=== PATIENT | male | born 1935 | race Caucasian/White ===

== ENCOUNTER 2017-07-28 22:29 | Observation (INO) | payer MEDICARE ==
[2017-07-28 23:27] LABS: CKMB 0.7 ng/mL (0-6.6); Troponin I 0.012 ng/mL (< 0.028)
[2017-07-29] MEDS ORDERED: Ondansetron ODT 4 MG TAB SL PRN (02:13)
[2017-07-29] MEDS ORDERED: Ondansetron HCl/PF 4 MG/2 ML Vial IVP PRN (02:13)
[2017-07-29] MEDS ORDERED: Nitroglycerin 2% Ointment 1 INCH/1 GM Packet TOP PRN (02:13)
[2017-07-29] MEDS ORDERED: Acetaminophen 325 MG TAB PO PRN ×2 (02:13→07:02)
[2017-07-29 02:40] VITALS: BMI 40.9
[2017-07-29 02:54] LABS: Troponin I 0.013 ng/mL (< 0.028)
[2017-07-29 05:39] LABS: Troponin I 0.015 ng/mL (< 0.028)
[2017-07-29] MEDS ORDERED: Ondansetron ODT 4 MG TAB PO PRN (07:02)
[2017-07-29 07:21] LABS: #Eosinphils 0.3 thou/uL (0.0-0.7); #Lymphocytes 1.5 thou/uL (1.20-3.40); #Monocytes 0.5 thou/uL (0.11-0.59); #Neutrophils 2.6 thou/uL (1.40-6.50); %Basophils 0.9 % (0.0-1.0); %Eosinophils 6.3 % (0.0-10.0); %Lymphocytes 30.6 % (21.0-51.0); %Monocytes 10.2 % (0.0-10.0); %Neutrophils 52.1 % (42.0-75.0); Hemoglobin 12.6 g/dL (14.0-18.0); Mean Corpuscular Hemoglobin 28.3 pg (27.0-31.0); Mean Corpuscular Volume 88.5 fl (80.0-94.0); Mean Platelet Volume 6.8 fL (7.4-10.4); Platelet Count 204 thou/uL (130-400); RBC Distribution Width 13.1 % (11.5-14.5); Red Blood Cell (RBC) Count 4.44 mill/uL (4.70-6.10)
[2017-07-29 07:35] LABS: Anion Gap 16 mmol/L (10-20); BUN (Urea Nitrogen) 29 mg/dL (8.4-25.7); Calc. Creatinine Clearance 49 mL/min (70-130); Calcium 9.4 mg/dL (7.8-10.44); Carbon Dioxide 22 mmol/L (23-31); Chloride 107 mmol/L (98-107); Estimated GFR-MDRD 28; Glucose 89 mg/dL (83-110); Magnesium 2.2 mg/dL (1.6-2.6); Potassium 4.5 mmol/L (3.5-5.1); Sodium 140 mmol/L (136-145)
[2017-07-29] MEDS: Enoxaparin Sodium 30 MG/0.3 ML SYRINGE SC SCH (08:25)
--- NOTE | 2017-07-29 10:49 | HP ---
PRIMARY CARE PHYSICIAN: Dr. Ray Allen. CURING PRESS OPERATOR: Primary concrete pouring supervisor was Dr. Salvatore Suarez. On-call concrete pouring supervisor, Omid Dillard. TIME OF SERVICE: 614. The patient was seen in the emergency department on 07/28/2017. The decisio n to place in observation was made just after midnight on 07/29/2017. CHIEF COMPLAINT: Chest pain. HISTORY OF PRESENT ILLNESS: Mr. Mulligan is a very pleasant 82-year-old male with a history of hyperl ipidemia, hypertension, renal cell carcinoma, status post nephrectomy, BPH, cerebrovascular disease, asthma, stroke, chronic diastolic congestive heart failure, coronary artery disease, anxiety and depr ession, who presents to the emergency department initially in [place] for evaluation of chest pain. The patient states he was in normal state of health. He woke up early in the morning 07/28 with subst ernal chest pressure. Initially, it stayed there in the center of the chest, did not radiate anywher e else and then eventually resolved on its own. He denied any nausea, vomiting, diaphoresis during t hat time, but later in the afternoon around 4:00 p.m., the patient developed increased severe 8/10 galvin bsternal chest pressure that radiated up into the back of his neck. His initially wanted him to go to the Emergency Department, but he wanted to wait for it to ease up; however, it became 10/10 in severity and will radiate up into his jaw. The patient stated he was unable to eat because of the p ain and the cramping in his jaw and the muscle cramps in the side of his neck. Subsequently, he went to the outside Emergency Department for evaluation. There, he was worked up. Labs were apparently normal. Creatinine 2.41 just above his normal baselin e and negative initial set of biomarkers with a CK-MB of 0.8 and a troponin of 0.018. He was transfe rred to [place] to be admitted for further evaluation. On arrival here, he was tolerating a little bit of discomfort. He was given a medicine for musculosk eletal pain as well as nitroglycerin. No set of biomarkers were drawn with a CK-MB down to 0.7 and a troponin I down to 0.012. We were subsequently called for admission. The patient was placed in observation little after midnight, was watched him on the floor. Serial ca rdiac biomarkers were obtained that were unremarkable and patient was seen and examined around 06:15 and formally admitted and was placed in observation. He denies any other current complaints. PAST MEDICAL HISTORY: 1. Hyperlipidemia. 2. Hypertension. 3. Renal cell carcinoma. 4. BPH. 5. Cerebrovascular disease status post CVA in 2000. 6. Chronic diastolic congestive heart failure, last echo in 02/2016. 7. Coronary artery disease. He is followed by Dr. Salvatore Suarez. He underwent cardiac catheterizati on after an abnormal stress test in 02/2016 that showed minimal coronary disease. No interventions w ere made and recommended medical management. 8. Anxiety. 9. Depression. PAST SURGICAL HISTORY: Right nephrectomy in 2005 with appendectomy remotely. HOME MEDICATIONS: 1. Toprol-XL 25 mg p.o. q.a.m. 2. Zocor 40 mg p.o. at bedtime. 3. Lasix 20 mg p.o. q.a.m. 4. Nifedipine 60 mg p.o. q.a.m. 5. Hydralazine 25 mg p.o. t.i.d. 6. Isosorbide mononitrate 30 mg p.o. daily. 7. Ropinirole 0.5 mg p.o. q.p.m. ALLERGIES: LORATADINE causes throat swelling and difficulty breathing. FAMILY HISTORY: Negative for clotting or bleeding disorders. No immune dysfunction. No premature c oronary artery disease. SOCIAL HISTORY: Negative for habits x3. He is and monogamous. No recent travel. REVIEW OF SYSTEMS: A 10-point review of systems was performed, negative for all other systems except as stated as per HPI. PHYSICAL EXAMINATION: VITAL SIGNS: Temperature on arrival at the outside ER 97.6, pulse 82, blood pressure 150/75, respira tory rate 18, satting 91% on room air. On discharge from our emergency department and arrival to our floor, temperature here was 97.9, pulse 71, blood pressure 141/77, respiratory rate 22, satting 96% on 2 liters. GENERAL: He is awake. He is alert. He is oriented x3. He is slightly disheveled, looking older wh ite male, appears to be in no acute distress. HEENT: Normocephalic, atraumatic. Pupils equal, round, reactive to light bilaterally, mucous membra last moist. No visible lesions, no thrush. NECK: Supple, without lymphadenopathy, JVD or thyromegaly. LUNGS: Clear. He has no wheezes, no rales, no rhonchi. No prolonged expiratory phase. No crackles . CARDIOVASCULAR: Normal S1, S2. No S3, S4. He has a 2/6 systolic ejection murmur. He has no holosy stolic murmurs and no diastolic murmurs. He has normal S1, S2, without S3 or S4. No rubs. ABDOMEN: Obese. It is nontender, nondistended. Difficult to palpate internal organs. He has no re bound, rigidity, or guarding. He has good bowel sounds present in all 4 quadrants. EXTREMITIES: Show no cyanosis or clubbing. He has got trace lower extremity edema to mid tibia. He has 1+ edema at the bilateral feet and ankles. He has 1+ dorsalis pedis and posterior tibial pulses , 2+ radial pulses. SKIN: Warm, moist, well perfused without any rashes or lesions. MUSCULOSKELETAL: Normal to inspection. No joint inflammation. No palpable effusion. NEUROLOGIC: Cranial nerves II-XII are grossly intact. He has normal speech pattern, 5/5 strength an d no focal deficits. LABORATORY DATA: Sodium 140, potassium 4.5, chloride 106, bicarb 22, BUN 29, creatinine 2.41 above h is baseline around 2-2.1, glucose 120, calcium 9.9. Liver function is completely within normal limits. CBC showed white count 6.4, hemoglobin 13.8, katherin tocrit 39.9, platelet count 195,000 with normal differential. CK-MB at the outside ER was 0.8 and here 0.7. Troponin I at outside ER was 0.018, here 0.012, and ev ingrid 6 hours 0.013 and 0.015. INR is 1.0 and BNP was 55.6. Chest x-ray showed stable cardiomegaly and chronic changes, stable. No acute changes. ASSESSMENT AND PLAN: 1. Chest pain, patient did have a good story for cardiac chest pain. With the severity of this pain and the duration certainly should need EKG changes or abnormal biomarkers. The patient does have kn own coronary artery disease that is minimal. Should when those plaques have ruptured, there would devlin ve been a larger event and troponins definitely would have been positive. He has now been effectivel y ruled out. Dr. Sandoval with Cardiology has been consulted. We will follow up with the recommendation , but likely I suspect to go home. 2. Chest and neck discomfort: The patient had a creatinine of 2.41, repeat labs for this morning ar e pending. In either event, his baseline creatinine is not low enough for a spill to give a contrast CT scan to get any kind of dissection protocol. We will have the nursing staff to check blood press ure in both of his arms and make sure there is no any differential. 3. Hypertension, on Toprol-XL, nifedipine, hydralazine, isosorbide. We will continue these. 4. Renal cell carcinoma, status post nephrectomy. He does have chronic kidney disease stage 3. Cre atinine is 2.41. We will recheck labs for this morning. 5. Chronic diastolic congestive heart failure without acute exacerbation. He is on a beta chase, he is not on an GENARO inhibitor due to chronic kidney disease, we will continue long-acting nitrate and his beta chase. 6. Coronary artery disease as above. 7. Anxiety or depression as above.
[2017-07-29] MEDS ORDERED: Furosemide 20 MG TAB PO PRN (13:35)
--- NOTE | 2017-07-29 13:35 | PDOC.EVN ---
Event Note - Event Note Event Note: 82 M with Diastolic CHF, CKD, HTN and HLD admitted for Cp r/o ACS. Currently chest pain free. Physical examination benign. Awaiting cardiology evaluation. Will trend troponin, give nitro and morphine PRN for chest pain.
[2017-07-29] MEDS: hydrALAZINE 25 MG TAB PO SCH ×2 (15:59→20:41)
[2017-07-29] MEDS ORDERED: Simvastatin 40 MG TAB PO SCH (21:00)
--- NOTE | 2017-07-29 21:12 | CON ---
DATE OF CONSULTATION: 07/29/2017 ROOM NUMBER: [id number]. PRIMARY YOKE SETTER: Dr. Oneyda Sandoval. REFERRING DOCTOR: Dr. John Esposito. REASON FOR CARDIOLOGY CONSULTATION: Chest pain. HISTORY OF PRESENT ILLNESS: Mr. Mulligan is an 82-year-old male with a significant history of hypertension, paroxysmal atrial fibrillation, and chronic shortness of breath secondary to asbestos exposure. Patient had severe pain to back of his neck yesterday around 3 o' clock in the morning and the pressure continued through the day yesterday. He also experienced heaviness and pressure-like pain to his mediastinal area with the pain radiating to bilateral jaws. He has numbness and pain to the bilateral jaw, which he could not move his neck well and he could not eat yesterday because of those symptoms. The patient decided to present to the emergency department for further evaluation and treatment. During the assessment, he is still complaining about the pain to his neck, especially to the right side with movement. When he nods the head, the pain in right side neck increased and he also complaining of shortness of breath, edema in the bilateral lower extremities, which worsened lately. He has chronic shortness of breath due to asbestos exposure. Last time, he was at Dr. Suarez's office, he was referred to State Wildlife Officer. His pulmonary function test in 04/20/2017 showed mild restrictive ventilatory defect with gas exchange at the lower limits of normal, that is correct for alveolar ventilation and mild reduction in both FEV1 and FVC. He has a severe sleep apnea. He is supposed to wear CPAP, which is broken at this moment and he have not replace yet due to the cost of the test of sleep study and the equipment. The patient failed last year, which cause numbness to the left arm and the shoulder. He underwent 2 cardiac catheterization in 02/2016, which shows really mild coronary artery disease to the right coronary arteries, which is less than 50% in the severity. The patient's last echocardiogram was in 11/2015 which shows EF of 40% to 55% with a grade I diastolic dysfunction. Patient's 12 lead EKG revealed incomplete right bundle gita block with sinus rhythm, which has no change from EKG in the 2016 at the office. The patient has a history of paroxysmal atrial fibrillation and patient underwent atrial fibrillation ablation in 2007 or 2008 since then, he has been in regular rhythm per patient and family's report. PAST MEDICAL HISTORY: 1. Mild coronary artery disease to the right coronary arteries less than 50% on severity. 2. Hypertension. 3. Chronic kidney disease. Patient has been followed up with Dr. Elam. 4. Right kidney kidney carcinoma. 5. Paroxysmal atrial fibrillation with status post atrial fibrillation ablation in 2007 or 2008. 6. CVA in 2016, obstructive sleep apnea. 7. Chronic shortness of breath secondary to asbestos exposure. 8. Anxiety and depression. PAST SURGICAL HISTORY: 1. Appendicectomy. 2. Right nephrectomy due to kidney cancer in 2002, left knee replacement in 2002, prostate cancer with 9 weeks of radiation, cataract surgery in 2012, and atrial fibrillation ablation in 2007 or 2008. FAMILY HISTORY: Patient's father at the age of 50s and the patient's paternal side have the history of coronary artery disease. Patient's mother due to colon cancer. SOCIAL HISTORY: He lives with his . He is active. He has a history of chewing tobacco for 20 years and he quit in 1986. He has a history of ETOH abuse, but he quit in 1983. He denied any illicit drug abuse. ALLERGIES: He is allergic to Claritin, which cause dyspnea and stopped breathing. REVIEW OF SYSTEMS: The following complete review of systems was negative, unless otherwise mentioned in the HPI or below. Constitutional: Weight loss, weight gain, sense of well being, ability to conduct usual activities, exercise tolerance. Skin: Rash, itching, change in hair growth or loss, nail changes, breast lumps, tenderness, swelling, nipple discharge. Eyes: Vision change, double vision, tearing, blind spots, pain. HEENT: Headache, fatigue or lightheadedness, nose bleeding, cold, obstruction, discharge dental difficulty, gingival bleeding. Cardiovascular: Denies palpitations, syncope, cyanosis, heart murmurs, claudication mycosis. Respiratory: Positive to shortness of breath, but negative to wheezing, stridor, cough, hemoptysis, fever, or night sweats. Gastrointestinal: Poor appetite, dysphagia, indigestion, abdominal pain, heartburn, eructation, nausea, vomiting, jaundice, constipation, or diarrhea. Abnormal stool, blood in the stool. Genitourinary: Urgency, frequency, dysuria, nocturia. Genitourinary: Positive for intermittent hematuria due to the Prostate cancer with chronic UTI kidney infection, but negative for frequency, dysuria, nocturia, polyuria, oliguria, unusual color of urine. Musculoskeletal: Pain, swelling, redness or heat of muscle or joint, limitation of motion, muscular weakness, atrophy, cramps. Neurologic: Seizure conversion paralysis, tremor, incoordination. Psychiatric: Emotional problem, anxiety, depression, previous psychiatric care, unusual perceptions, hallucinations. PHYSICAL EXAMINATION: VITAL SIGNS: Blood pressure 143/65, heart rate 97 with sinus rhythm, respiratory rate 16, O2 sat 97% to 98% with room air, temperature 97.8. GENERAL: Well-developed, well-nourished without any acute distress. HEAD: Normocephalic, atraumatic. EYES: Extraocular muscle movement intact. ENT: Oral and nasal mucosa are moist without lesion. NECK: Supple, but limited range of motion due to the pain to the left side of the neck. LUNGS: Clear to auscultation bilaterally, but diminished at the bases. No wheezing, rales, or rhonchi noted. CARDIOVASCULAR: Regular rate and rhythm, normal S1, S2. There are no S3 or S4. No significant murmur, hives, thrill, bruits or rub noted. There are 2+ pulses in bilateral dorsalis pedis, posterior tibial, and popliteal. Carotid pulse are present without bruits or thrill. No edema in the bilateral lower extremities. ABDOMEN: Soft and nontender. All mass to palpate, nondistended. Bowel sounds are present, but hypoactive. MUSCULOSKELETAL: Able to move all extremities. SKIN: Warm and dry. No skin rash, lesion, bruise noted. NEUROLOGIC: Alert, oriented x4, awake. Normal affect. Nonfocal. PSYCHIATRIC: Mood, affect normal. LABORATORY DATA: A 12-lead EKG in the ER showed a sinus rhythm with frequent PVCs and incomplete right bundle gita block, which has not changed since 2016 in the office, heart rate is 85. WBC 5.0, hemoglobin 12.6, hematocrit 39.3, platelet 204. Sodium 140, potassium 4.5, BUN 29, creatinine level 2.28, which is baseline for this patient. CK-MB 7.0, troponin 0.012, 0.013, 0.015 and 0.010. ASSESSMENT AND PLAN: 1. Chest pain. According to the patient's negative EKG and troponins level and cardiac catheterization result in 2016. Patient's symptoms seemed to coming from his neck and between his shoulders. At this moment, the patient denied any chest pain or heaviness, or tightness, or any other cardiac since symptoms except the pain to his the hip, neck. At this moment, he can move all extremities without any difficulties. I do not believe the patient needs further cardiac evaluation, but I would like to discuss with Dr. Sandoval about this patient's condition and we would like to make further recommendation. 2. Chronic diastolic heart failure. Patient's condition is stable. There is no edema or shortness of breath. We like to continue to monitor. 3. Hypertension. Patient's blood pressure has been stable with current medication. We like to continue to monitor. 4. Paroxysmal atrial fibrillation with a history of atrial fibrillation ablation. The patient remain in sinus rhythm at this moment, we like to continue to monitor on telemetry. 5. Chronic kidney disease with a history of right renal carcinoma with nephrectomy. Patient creatinine level has not been changed. We like to continue to monitor. If possible, we have to request a Nephrology consult. At this moment, we like to continue to monitor. 6. Hyperlipidemia. Patient is on the statin. 7. Chronic shortness of breath secondary to asbestos exposure. Patient's O2 sat have been in upper 90s with room air at this moment. Patient denies any shortness of breath at this moment. We like to continue to monitor. 8. Sleep apnea, stable at this moment, I strongly recommend him to have a sleep study to receive CPAP machine. Thank you very much for allowing cardiology service to participate in the care of this patient. We will follow along with the patient's care team and make further recommendations as appropriate. JAMIA
--- NOTE | 2017-07-29 21:16 | ADD-CON ---
DATE OF CONSULTATION: 07/29/2017 DATE OF ADMISSION: 07/29/2017 Please refer to the notes already dictated by the nurse practitioner Ankita. This is an addendum to t eulalio note. Mr. Mulligan is a very pleasant 82-year-old gentleman who has been followed by Dr. Suarez in the past. He has undergone a cardiac catheterization and was found to have only mild coronary artery disease in volving the right coronary artery, mild to moderate disease in right coronary artery. He has also a history of CVA as well as renal cell carcinoma, hypertension and dyslipidemia. He was at home yester day when he noticed that he had throat pain, which became rather intense. He then had some jaw pain. He was unable to eat due to the pain. He denied any significant chest discomfort. He presented to the emergency room. EKG is unremarkable for any acute episodes of ischemia. Cardiac enzymes also w ere unremarkable and does not appear that his pain at this time is cardiac in nature and appears to b e noncardiac with most likely muscle spasms. His EKG shows a left anterior fascicular block with inc omplete right bundle, but normal sinus rhythm and occasional PVCs, but no acute changes otherwise. Raffaele kraft is comfortable at this time and has had no further discomfort. PHYSICAL EXAMINATION: GENERAL: Reveals a well-developed, well-nourished, elderly gentleman. VITAL SIGNS: Blood pressure is 143/65, heart rate is 96 and regular. He is afebrile, respiratory ra te 16. HEENT: Reveals the head to be normocephalic, atraumatic. Carotid pulses are present. There were no significant bruits noted. There is no JVD. Thyroid is not enlarged. There is no tenderness or mas ses noted. He does have some tenderness on the muscle areas of the sternocleidomastoid muscle on the left side, somewhat tender, I suspect this is due to some previous muscle spasms. CHEST: Otherwise, chest was clear to auscultation. CARDIOVASCULAR: Exam reveals a regular rate and rhythm. No significant murmurs were noted. ABDOMEN: Shows obesity with positive bowel sounds. EXTREMITIES: Showed no clubbing, cyanosis or edema. NEUROLOGIC: The patient appears to be intact. SKIN: Warm and dry. LABORATORY: Does show a creatinine of 2.28 with a BUN of 29. Cardiac enzymes are negative. CPK MB was 0.7, hemoglobin was 12.6. IMPRESSION: Elderly gentleman with a history of single vessel coronary artery disease involving the right coronary artery, who has presented with neck pain. This does not appear to be cardiac in alexandra e. The pain has resolved at this time. His EKG is unremarkable. Enzymes are negative. We will con tinue to manage him medically at this time. I do not see any further cardiac workup indicated at thi s time. His cardiac catheterization was in 02/2016. Should he have EKG changes or positive cardiac enzymes, then we can consider a repeat cardiac catheterization. At this time, I believe, from a card iac standpoint, he appears to be stable. For the other assessment and plan, please refer to the note s already dictated. If he remains stable, then perhaps the patient can be discharged home tomorrow.
[2017-07-29] MEDS: rOPINIRole HCl 0.5 MG TAB PO SCH (23:45)
[2017-07-30] MEDS: rOPINIRole HCl 0.5 MG TAB PO SCH (00:53)
[2017-07-30 05:56] LABS: #Eosinphils 0.3 thou/uL (0.0-0.7); #Lymphocytes 1.5 thou/uL (1.20-3.40); #Monocytes 0.5 thou/uL (0.11-0.59); #Neutrophils 2.6 thou/uL (1.40-6.50); %Basophils 0.9 % (0.0-1.0); %Eosinophils 5.3 % (0.0-10.0); %Lymphocytes 31.2 % (21.0-51.0); %Monocytes 9.6 % (0.0-10.0); Hemoglobin 12.8 g/dL (14.0-18.0); Mean Corpuscular HGB CONC 33.1 g/dL (32.0-36.0); Mean Corpuscular Volume 87.7 fl (80.0-94.0); Mean Platelet Volume 6.8 fL (7.4-10.4); Platelet Count 199 thou/uL (130-400); RBC Distribution Width 12.9 % (11.5-14.5); White Blood Cell (WBC) Count 4.8 thou/uL (4.8-10.8)
[2017-07-30 06:07] LABS: Anion Gap 12 mmol/L (10-20); BUN (Urea Nitrogen) 27 mg/dL (8.4-25.7); Calc. Creatinine Clearance 49 mL/min (70-130); Calcium 9.5 mg/dL (7.8-10.44); Carbon Dioxide 26 mmol/L (23-31); Chloride 106 mmol/L (98-107); Estimated GFR-MDRD 28; Glucose 95 mg/dL (83-110); Magnesium 2.2 mg/dL (1.6-2.6); Potassium 4.9 mmol/L (3.5-5.1); Sodium 139 mmol/L (136-145)
[2017-07-30 08:00] VITALS: BP 148/65; TEMP 98.1
[2017-07-30] MEDS: Enoxaparin Sodium 30 MG/0.3 ML SYRINGE SC SCH (08:27)
[2017-07-30] MEDS: hydrALAZINE 25 MG TAB PO SCH (08:28)
[2017-07-30] MEDS ORDERED: NIFEdipine XL 60 MG TAB PO SCH (09:00)
[2017-07-30] MEDS ORDERED: Aspirin 81 mg Enteric Coated Tablet PO SCH (09:00)
--- NOTE | 2017-07-30 09:58 | PDOC.CTH ---
Cardiology Progress Note - Subjective The pt seen and examined. No overnight events. No cardiac complaints. He denied any CP or heaviness to his chest. He still has mild-mod discomfort to back of his neck. - Objective Vital Signs Temp Pulse Resp BP BP Pulse Ox 07/30/17 08:28 78 148/65 H 07/30/17 07:24 98.1 F 78 16 148/65 H 96 07/30/17 04:20 98.6 F 76 18 158/72 H 94 L 07/30/17 00:53 76 16 149/67 H 96 Weight 292 lb 12.8 oz 07/29/17 07/30/17 07/31/17 06:59 06:59 06:59 Intake Total 100 2040 Output Total 500 100 Balance 100 1540 -100 - Physical Examination General/Neuro: alert & oriented x3 Neck: no JVD present Lungs: other: (diminished at bases) Heart: RRR Abdomen: soft Extremities: other: (No edemas) - Telemetry Telemetry Rhythm: SR 1st AVB - Labs Result Diagrams: 07/30/17 04:20 07/30/17 04:20 Troponin/CKMB CK-MB (CK-2) 0.7 ng/mL (0-6.6) 07/28/17 22:54 Troponin I 0.010 ng/mL (< 0.028) 07/29/17 14:08 - Assessment/Plan 1. CP - resolved. On ASA, not BBlocker due to lung problem and no GENARO due to CKD. 2. Chronic Diastolic HF - Stable with lasix 20mg PRN; not BBlocker due to lung problem and no GENARO due to CKD; cont. monitor 3. HTN - stable; cont. monitor 4. Paroxysmal Afib w/ hx of Afib Ablation in 2007 or 2008 - remains in SR with 1st AVB. 5. CKD - no changed. Instructed to f/u with Dr Elam. 6. Hyperlipidemia - on Statin 7. Sleep Apnea - Strongly recommend to wear Cpap at HS 8. Chronic SOB due to Asbestos exposure - stable MAR reviewed * From cardiac standpoint, the pt is stable to d/c home. He will f/u with Dr Sandoval' office or Dr Suarez's office at [facility] in [place] within 2-4wks. Review of Systems - Review of Systems Constitutional: reports: no symptoms reported EENTM: reports: no symptoms reported Respiratory: reports: no symptoms reported Cardiac (ROS): reports: no symptoms reported ABD/GI: reports: no symptoms reported : reports: no symptoms reported Musculoskeletal: reports: no symptoms reported
--- NOTE | 2017-07-30 15:44 | PDOC.PN ---
- Subjective Encounter Start Date: 07/30/17 Encounter Start Time: 15:43 Subjective: No complaints. Chest pain resolved. - Objective Resuscitation Status: Resuscitation Status FULL:Full Resuscitation MAR Reviewed: Yes Vital Signs & Weight: Vital Signs (12 hours) Temp Pulse Resp BP BP Pulse Ox 07/30/17 08:30 98.1 F 78 16 07/30/17 08:28 78 148/65 H 07/30/17 07:24 98.1 F 78 16 148/65 H 96 07/30/17 04:20 98.6 F 76 18 158/72 H 94 L Weight Weight 292 lb 12.8 oz I&O: 07/29/17 07/30/17 07/31/17 06:59 06:59 06:59 Intake Total 100 2040 240 Output Total 500 100 Balance 100 1540 140 Result Diagrams: 07/30/17 04:20 07/30/17 04:20 Phys Exam - Physical Examination Constitutional: NAD HEENT: PERRLA, moist MMs, sclera anicteric Neck: no JVD, full ROM Respiratory: no wheezing, no rales, no rhonchi, clear to auscultation bilateral Cardiovascular: RRR, no significant murmur, no rub Gastrointestinal: soft, non-tender, no distention, positive bowel sounds Musculoskeletal: no edema Neurological: non-focal, moves all 4 limbs Psychiatric: normal affect, A&O x 3 Skin: no rash Dx/Plan (1) Chest pain, rule out acute myocardial infarction Code(s): R07.9 - CHEST PAIN, UNSPECIFIED Status: Acute Plan: Stable, chest pain free. Reviewed by cardiology and no new recs. To follow up as outpATIENT. (2) HTN (hypertension) Code(s): I10 - ESSENTIAL (PRIMARY) HYPERTENSION Status: Chronic Qualifiers: Hypertension type: essential hypertension Qualified Code(s): I10 - Essential (primary) hypertension Plan: cONTROLLED. coNTINUED ON HOME REGIMEN. (3) Acute diastolic CHF (congestive heart failure) Code(s): I50.31 - ACUTE DIASTOLIC (CONGESTIVE) HEART FAILURE Status: Acute Plan: Stable. Not in acute exacerbation. Continued on home regime. (4) CKD (chronic kidney disease) stage 3, GFR 30-59 ml/min Status: Chronic Comment: At baseline. - Plan cont current plan of care, plan discussed w/ family * .
--- NOTE | 2017-07-31 00:07 | DIS ---
DATE OF ADMISSION: 07/29/2017. DATE OF DISCHARGE: 07/30/2017. PRIMARY DISCHARGE DIAGNOSIS: Chest pains, rule out acute coronary syndrome. SECONDARY DIAGNOSES: Acute diastolic congestive heart failure, hypertension, chronic kidney disease, hyperlipidemia, and sinus bradycardia. HISTORY OF PRESENT ILLNESS: An 82-year-old male with a history of hyperlipidemia; hypertension; alicia l cell carcinoma, status post nephrectomy; BPH; cerebrovascular disease; asthma; and diastolic CHF wi th CAD who presented to the emergency room for chest pain evaluation, which started the night before. The pain was substernal, did not radiate and eventually resolved on its own. He had no nausea, vom iting, or diaphoresis. However, later on his chest pain reoccurred, which was 8/10 in severity, whic h radiated to the back of his neck and jaw. At the emergency room, labs were normal. His creatinine was about 2.4 (just above his normal baseline). Cardiac biomarkers were negative and EKG showed no signs of acute ischemia. HOSPITAL COURSE: His vital signs remained stable. He was resumed on his home medications and cardia c enzymes remained negative. He was also reviewed by Cardiology and no new recommendations were made . The patient will follow up with his primary care within 1 week of discharge and also would see his rn embedded. MEDICATIONS AT DISCHARGE: 1. Aspirin 81 mg p.o. daily. 2. Furosemide 20 mg p.o. daily p.r.n. 3. Hydralazine 25 mg p.o. t.i.d. 4. Isosorbide mononitrate 30 mg p.o. daily. 5. Nifedipine 60 mg p.o. daily. 6. Ropinirole 1 mg p.o. q.p.m. 7. Simvastatin 20 mg p.o. at bedtime. CONSULTATIONS: Cardiology. PROCEDURES: None. DIET: Cardiac. CONDITION AT DISCHARGE: Stable. ACTIVITY: To resume as tolerated. PHYSICAL EXAMINATION: VITAL SIGNS: Blood pressure 148/65, heart rate 78, oxygen saturation 96% on room air, temperature 98 .1 degrees Fahrenheit. GENERAL: Not in acute distress. Alert and oriented to time, place, and person. HEENT: Normocephalic, atraumatic. PERRLA. EOMI. NECK: Supple. No JVD. RESPIRATORY: Clear lungs bilaterally. No wheezes or rales. CARDIOVASCULAR: S1 and S2 only. Positive systolic ejection murmur. No edema. ABDOMEN: Obese, nondistended. Bowel sounds positive. EXTREMITIES: No tenderness. MUSCULOSKELETAL: Moves all extremities spontaneously. No edema. SKIN: Warm and dry. No rashes or lesions. NEUROLOGIC: Alert and well oriented. No focal deficits. LABORATORY DATA: WBC 4.8, hemoglobin 12.8, hematocrit 38.6, platelets 199. Sodium 139, potassium 4.9, chloride 106, BUN 27, creatinine 2.4. CARE GOALS: To follow up with his primary care physician within 1 week of discharge. Also, to follo w up with his rn embedded. DISPOSITION: Discharged to home. Total time of discharge: 65 minutes.
--- NOTE | 2017-08-08 13:43 | EKG ---
Test Reason : Blood Pressure : / mmHG Vent. Rate : 062 BPM Atrial Rate : 062 BPM P-R Int : 232 ms QRS Dur : 118 ms QT Int : 426 ms P-R-T Axes : 033 -54 022 degrees QTc Int : 432 ms Sinus rhythm with 1st degree A-V block Left anterior fascicular block Abnormal ECG Confirmed by RADHA BELL ([id number]), digital editor LISSA GUILLERMO ([id number]) on 08/08/2017 1:42:55 PM Referred By: Confirmed By:RADHA BELL
== END 2017-07-30 12:31 | disposition home or self-care (01) ==
LOC: ERS 22:29 → 2SW 07-29 00:20
PROVIDERS: ADMIT Internal Medicine Infectious Disease; ATTEND Internal Medicine Infectious Disease
DX: R07.2 Precordial pain (principal); I13.0 Hypertensive heart and chronic kidney disease with heart failure and stage 1 through stage 4 chronic kidney disease, or unspecified chronic kidney disease; I50.33 Acute on chronic diastolic (congestive) heart failure; N18.3 Chronic kidney disease, stage 3 (moderate); E78.5 Hyperlipidemia, unspecified; R00.1 Bradycardia, unspecified; N40.0 Benign prostatic hyperplasia without lower urinary tract symptoms; J45.909 Unspecified asthma, uncomplicated; F32.9 Major depressive disorder, single episode, unspecified; F41.9 Anxiety disorder, unspecified; I25.10 Atherosclerotic heart disease of native coronary artery without angina pectoris; M54.2 Cervicalgia; I48.0 Paroxysmal atrial fibrillation; R06.02 Shortness of breath; G47.33 Obstructive sleep apnea (adult) (pediatric); F10.11 Alcohol abuse, in remission; Z79.82 Long term (current) use of aspirin; Z79.899 Other long term (current) drug therapy; Z88.8 Allergy status to other drugs, medicaments and biological substances; Z98.49 Cataract extraction status, unspecified eye; Z96.652 Presence of left artificial knee joint; Z90.5 Acquired absence of kidney; Z90.49 Acquired absence of other specified parts of digestive tract; Z98.890 Other specified postprocedural states; Z77.090 Contact with and (suspected) exposure to asbestos; Z85.528 Personal history of other malignant neoplasm of kidney; Z85.46 Personal history of malignant neoplasm of prostate; Z86.73 Personal history of transient ischemic attack (TIA), and cerebral infarction without residual deficits; Z92.3 Personal history of irradiation; Z87.891 Personal history of nicotine dependence
CPT/HCPCS: 80048 ×2; 82553; 83735 ×2; 84484 ×3; 85025 ×2; 93005; 96372 ×2; 99285; G0378; 36415; J1650

== ENCOUNTER 2018-12-29 17:45 | Observation (INO) | payer MEDICARE ==
[2018-12-29 20:23] LABS: Troponin I Less than 0.010 ng/mL (< 0.028)
[2018-12-29 22:03] VITALS: BMI 40.4
[2018-12-29] MEDS: Acetaminophen 325 MG TAB PO PRN (23:19)
[2018-12-29 23:24] LABS: Troponin I Less than 0.010 ng/mL (< 0.028)
[2018-12-30] MEDS ORDERED: Ondansetron ODT 4 MG TAB PO PRN (01:53)
[2018-12-30] MEDS ORDERED: Senokot S 8.6-50 MG TAB PO PRN (01:53)
[2018-12-30] MEDS ORDERED: Ondansetron PF 4 MG/2 ML Vial IVP PRN (01:53)
[2018-12-30] MEDS ORDERED: hydrALAZINE 20 MG/ML VIAL SLOW IVP PRN (03:55)
[2018-12-30] MEDS: Sodium Chloride 0.45% 1,000 ML IV SCH (04:19)
--- NOTE | 2018-12-30 04:33 | HP ---
CHIEF COMPLAINT: Multiple falls. HISTORY OF PRESENT ILLNESS: Mr. Mulligan is an 83-year-old man, who presents after being advised by his doctor at the NH to seek medical attention due to multiple falls in the last 2 weeks. The patient states he recalls at one point in recent days taking a shower and then waking up on the floor. He denies sustaining any major injuries, but is unsure how long he was unconscious for. He denies experiencing any preceding symptoms. The patient states he has been feeling increasingly fatigued and short of breath. He also reports having persistent neck pain, which has been a chronic issue for him, but worse more recently. He states he has been experiencing intermittent headaches, which he feels is being exacerbated by the neck pain. The patient reports having numbness and weakness in the right hand, which has also worsened in the last several weeks. He complains of occasional right shoulder pain. He reports having a good appetite without any nausea or vomiting. Denies any abdominal pain or cramping. Reports having occasional issues with constipation. Denies having any blood in his stools. No urinary symptoms. Reports experiencing occasional pain in the jaw. He also reports feeling lightheaded on occasion. He has recently started using his walker to get around more frequently, where previously he used a motorized chair. He reports undergoing injection to the neck for his neck pain. In the Emergency Department, he had an EKG done, which showed left anterior fascicular block and possibly changes associated with bigeminy. He underwent laboratory studies including a D-dimer, which was elevated. Due to CKD, a perfusion scan was requested. The patient is being referred for further workup of his multiple complaints. PAST MEDICAL HISTORY: 1. Kidney cancer. 2. Hypertension. 3. Hyperlipidemia. 4. History of DVT. 5. CVA. 6. Seborrheic keratosis. 7. BPH. 8. CHF. 9. CKD. 10. Prostate cancer. 11. Anxiety. 12. Depression. PAST SURGICAL HISTORY: 1. Right-sided nephrectomy. 2. Appendectomy. 3. Left knee surgery. SOCIAL HISTORY: The patient denies any alcohol use, drug use, or tobacco use. PHYSICAL EXAMINATION: GENERAL: The patient appears obese, well developed, and in no acute distress. VITAL SIGNS: Temperature 98.3, pulse 74, respirations 16, O2 saturation 98% on room air, blood pressure 140/76. HEENT: Normocephalic and atraumatic. Pupils are equal, round, and reactive to light. Extraocular movements intact. No nystagmus present. Oropharynx is clear. No tongue deviation. NECK: Supple. Mild discomfort with palpation of the cervical spine with paraspinal muscle soreness. Full range of motion. No nuchal rigidity. CARDIAC: Regular rate and rhythm. LUNGS: Clear bilaterally. No wheezes, rales, or rhonchi. ABDOMEN: Obese, soft, nontender, nondistended. No guarding or rigidity. No renal angle tenderness. EXTREMITIES: The patient has discomfort involving the right knee, which is chronic. No calf tenderness or lower limb edema. SKIN: Without rash or jaundice. NEUROLOGIC: Alert and oriented x3. Reduced range of motion in the right hand as well as reduced sensation and reduced power. 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 LABORATORY DATA: White blood count 6.8, hemoglobin 12.7, hematocrit 39.8, platelets 244. Sodium 141, potassium 4.5, anion gap 16, BUN 40, creatinine 2.92, GFR 21, glucose 124, calcium 9.6. LFTs unremarkable. Troponin I negative. BNP 41. Albumin 4.0. IMAGING DATA: 1. Chest x-ray, 12/29/2018. Cardiomegaly, but minimal change since 2018. 2. CT brain, 12/29/2018. Generalized atrophy and mild chronic ischemic change. It appears no different than 2016 CT. IMPRESSION AND PLAN: Mr. Mulligan is an 83-year-old man, who is being referred for further workup of lightheadedness and multiple falls/syncope. 1. Neck pain and headaches. He has some mild discomfort on palpation and a history of spondylosis noted on previous cervical spine imaging. He reports right shoulder pain and right hand numbness. We will obtain MRI of the brain as well as cervical spine. Consider Neurosurgery consult or outpatient referral pending results of imaging. 2. Syncope. Echo requested. We will obtain laboratory studies including TSH and we will place him on tele monitor. Apparently, initial EKG showed bigeminy; however, he has been in normal sinus rhythm since. Known to Dr. Sandoval, who has been consulted given his cardiac history and current symptoms. Of note, his D-dimer was elevated; however, due to his chronic kidney disease, a pulmonary perfusion scan has been requested. We will add a urinalysis and urine drug screen. Orthostatic blood pressures have been requested. 3. DERRICK/CKD. Slightly elevated creatinine from his baseline. We will provide gentle hydration. Day Team to decide if further input from Nephrology is necessary. He normally sees Dr. Santana or one of the doctors at [facility]. We plan to initiate regular home medications once verified. 4. Hypertension. We will resume home medications once verified and in the meantime, we will continue p.r.n. hydralazine and monitor his blood pressure closely. 5. Code status is full. His surrogate decision maker is his , Cori Mulligan. The patient's case was thoroughly discussed with Dr. Milton, who agrees with plan of care as described above. Job ID: [id number] [facility]
[2018-12-30 05:31] LABS: #Basophils 0.1 thou/uL (0.0-0.2); #Eosinphils 0.2 thou/uL (0.0-0.7); #Lymphocytes 1.7 thou/uL (1.20-3.40); #Monocytes 0.4 thou/uL (0.11-0.59); #Neutrophils 2.5 thou/uL (1.40-6.50); %Basophils 1.8 % (0.0-1.0); %Eosinophils 4.7 % (0.0-10.0); %Lymphocytes 33.5 % (21.0-51.0); %Monocytes 8.8 % (0.0-10.0); %Neutrophils 51.1 % (42.0-75.0); Hemoglobin 11.8 g/dL (14.0-18.0); Mean Corpuscular Hemoglobin 28.4 pg (27.0-31.0); Mean Platelet Volume 7.1 fL (7.4-10.4); Platelet Count 230 thou/uL (130-400); RBC Distribution Width 12.7 % (11.5-14.5); Red Blood Cell (RBC) Count 4.16 mill/uL (4.70-6.10); White Blood Cell (WBC) Count 4.9 thou/uL (4.8-10.8)
[2018-12-30 05:52] LABS: Anion Gap 13 mmol/L (10-20); BUN (Urea Nitrogen) 38 mg/dL (8.4-25.7); Calc. Creatinine Clearance 38 mL/min (70-130); Calcium 9.7 mg/dL (7.8-10.44); Carbon Dioxide 25 mmol/L (23-31); Cardiac Risk 4.1 (Less than 4.5); Chloride 109 mmol/L (98-107); Cholesterol 123 mg/dl (< 200 Desired); Estimated GFR-MDRD 22; Glucose 89 mg/dL (83-110); HDL Cholesterol 30 mg/dL (>60 Neg Risk); LDL Cholesterol, Calculated 70 mg/dL; Potassium 4.9 mmol/L (3.5-5.1); Sodium 142 mmol/L (136-145); Triglycerides 114 mg/dL (Less than 150)
[2018-12-30 06:45] LABS: Bilirubin Negative (Negative); Blood, Urine Negative (Negative); Clarity Clear (Clear); Glucose, Urine (Dipstick) Negative (Negative); Leukocyte Negative (Negative); Nitrite Negative (Negative); Protein, Urine (Dipstick) > or equal to 300 mg/dL (Neg-Trace); Urobilinogen 0.2 mg/dL (0.2-1.0)
[2018-12-30 06:51] LABS: Cocaine Metabolite Screen Not Detected (NotDetected); Medtox Reader # READER 1; Phencyclidine (PCP) Not Detected (NotDetected); THC/Cannabinoid Screen Not Detected (NotDetected)
[2018-12-30 06:52] LABS: Amphetamine Not Detected (NotDetected); Barbiturates Screen Not Detected (NotDetected); Benzodiazepine Screen Not Detected (NotDetected); Medtox Control Line Valid? VALID (VALID); Methadone Not Detected (NotDetected); Methamphetamine Not Detected (NotDetected); Opiate Screen Not Detected (NotDetected); Oxycodone Screen Not Detected (NotDetected); Tricyclic Screen Not Detected (NotDetected)
[2018-12-30 07:00] LABS: Bacteria/HPF 1+ HPF (None Seen); RBC/HPF 0-3 HPF (0-3); Squamous Epithelial 0-3 HPF (0-3)
[2018-12-30 07:02] LABS: Urine Culture Reflex Yes Yes
[2018-12-30] MEDS: Acetaminophen 325 MG TAB PO PRN ×2 (09:34→14:44)
[2018-12-30] MEDS: Famotidine/PF 20 mg/2ml Vial SLOW IVP SCH (09:35)
[2018-12-30] MEDS: Lorazepam 2 MG/ML VIAL SLOW IVP SCH ×2 (10:28→14:44)
--- NOTE | 2018-12-30 12:48 | NM ---
NUCLEAR MEDICINE LUNG SCAN: HISTORY: Syncope, dyspnea, elevated D-dimer. COMPARISON: Plain film examination done yesterday. FINDINGS: The ventilation portion of the study was performed using 16.7 mCi Xenon 133 gas followed by the perfu yohannes study using 5.7 mCi 99m Technetium MAA. This shows some mild air trapping. The perfusion study shows no segmental or subsegmental defects. IMPRESSION: Findings compatible with a low probability of pulmonary embolus. POS: [facility]
--- NOTE | 2018-12-30 16:09 | MRI ---
EXAM: MRI Brain WO Con PROVIDED CLINICAL HISTORY: Headaches, syncope, right hand weakness/numbness. COMPARISON: 11/17/2015. FINDINGS: There is considerable motion artifact on all pulse sequences which does degrade image quality. Images were repeated without improvement in the motion artifact. There are areas of increased FLAIR and T2-weighted signal intensity in the periventricular white tejinder er which are nonspecific but likely reflective of mild chronic small vessel ischemic changes better visualized on prior exam. There is no evidence of an acute infarction. Mild diffuse cerebral volume loss is seen. The septum pellucidum and third ventricle are in the midli ne. The ventricular system is normal in size, shape, and position for the degree of sulcal atrophy. Flow voids at the base the brain are not adequately assessed but are grossly within normal limits. No obvious additional interval change when compared to prior study. IMPRESSION: 1. Limited examination secondary to significant patient motion. However, no acute infarction is visua lized. 2. Chronic small vessel ischemic changes and cerebral volume loss.
--- NOTE | 2018-12-30 18:25 | PDOC.PN ---
- Subjective Encounter Start Date: 12/30/18 Encounter Start Time: 16:20 Mr. Mulligan was seen today in follow-up of severe neck pain. He says this has actually been an ongoing problem for over a year. He does not have any new upper or lower extremity weakness with this. He denies any bowel or bladder dysfunction. he notes that if he turns his head a certain way it feels like there is a catch . - Objective Resuscitation Status - Order Detail: 12/30/18 01:53 Resuscitation Status Routine Co-Sign Provider: Resuscitation Status: FULL: Full Resuscitation MAR Reviewed: Yes Vital Signs & Weight: Vital Signs (12 hours) Temp Pulse Pulse Pulse Pulse Pulse Resp 12/30/18 16:06 98.2 F 66 16 12/30/18 16:02 66 65 77 69 12/30/18 12:00 97.6 F 67 12 12/30/18 07:41 97.8 F 76 18 BP BP BP BP BP BP BP 12/30/18 16:06 167/74 H 12/30/18 16:02 167/74 H 150/70 H 171/82 H 179/75 H 12/30/18 12:00 171/80 H 12/30/18 07:41 122/59 L 132/72 BP Pulse Ox Pulse Ox 12/30/18 16:06 96 12/30/18 16:02 65 L 12/30/18 12:00 99 12/30/18 07:41 139/69 94 L Weight Weight 289 lb 14.4 oz I&O: 12/29/18 12/30/18 12/31/18 06:59 06:59 06:59 Intake Total 340 1450 Output Total 300 800 Balance 40 650 Result Diagrams: 12/30/18 04:25 12/30/18 04:25 Phys Exam - Physical Examination HEENT: PERRLA Respiratory: no wheezing, no rales, no rhonchi, clear to auscultation bilateral Cardiovascular: RRR, no significant murmur, no rub Gastrointestinal: soft, non-tender, no distention, positive bowel sounds Musculoskeletal: no edema + mild right sided weakness as compared to his left side but it is still 5/5 , reflexes are equivocal, CN- are intact Dx/Plan (1) Neck pain Code(s): M54.2 - CERVICALGIA Status: Acute (2) Frequent PVCs Code(s): I49.3 - VENTRICULAR PREMATURE DEPOLARIZATION Status: Acute (3) Obesity, morbid, BMI 40.0-49.9 Code(s): E66.01 - MORBID (SEVERE) OBESITY DUE TO EXCESS CALORIES Status: Acute (4) HTN (hypertension) Code(s): I10 - ESSENTIAL (PRIMARY) HYPERTENSION Status: Chronic Qualifiers: Hypertension type: essential hypertension Qualified Code(s): I10 - Essential (primary) hypertension - Plan * Severe neck pain- his symptoms are consistent with a cervical radiculopathy- an MRI of the C-spine was ordered, however he was unable to successfully complete the MRI due to motion artifact- he has had similar symptoms in the past , and this may have been evaluated before- will try to obtain the records from his previous hospitalizations in [place] * Frequent PVC's- significance is unclear- Echo results were noted, and await further recommendations from Cardiology * HTN- blood pressure is elevated- will re-start his home medications * PE is unlikely due to low probability VQ scan * MRI was negative for acute CVA
[2018-12-30] MEDS: hydrALAZINE 25 MG TAB PO SCH (20:39)
[2018-12-30] MEDS ORDERED: Atorvastatin Calcium 20 MG TAB PO SCH (21:00)
--- NOTE | 2018-12-31 01:59 | CON ---
DATE OF CONSULTATION: HISTORY OF PRESENT ILLNESS: Benito Mulligan is an 83-year-old white male, admitted with multiple complaints, the most significant of which is multiple falls. He has been seen and evaluated by Dr. Salvatore Suarez and Dr. Sandoval after that. He did undergo cardiac catheterization, which revealed some mild right coronary artery disease. Dr. Sandoval evaluated him for jaw pain in July 2017 and felt that it was not cardiac related. Mr. Mulligan states that he has had 9 falls over the last 3 months. Some of these have occurred outside in the yard where he is using his walker since his electric scooter no longer works. Some of the these he thinks he may have tripped. However, some of these episodes, he states that he becomes very lightheaded, and then the next thing he knows, he is on the floor or on the ground. He denies any chest discomfort. He has had recent increasing shortness of breath and complains of a lot of neck pain and headache pain. PAST MEDICAL HISTORY: Hypertension, hyperlipidemia, mild coronary artery disease, history of DVT, history of stroke, BPH, chronic kidney disease, history of renal cell carcinoma, prostate cancer, anxiety, and depression. PAST SURGICAL HISTORY: Right nephrectomy, appendectomy, and left knee surgery. MEDICATIONS: 1. Aspirin 81 daily. 2. Hydralazine 25 t.i.d. 3. Isosorbide mononitrate 30 daily. 4. Metoprolol 25 daily. 5. Myrbetriq 25 daily. 6. Nifedipine 60 daily. 7. Simvastatin 40 at bedtime. ALLERGIES: LORATADINE. SOCIAL HISTORY: He does not smoke or drink. REVIEW OF SYSTEMS: Other than as noted above is unremarkable. PHYSICAL EXAMINATION: VITAL SIGNS: Blood pressure 167/74, pulse of 66. HEENT: PERRL. NECK: Supple. CHEST: Clear. CARDIAC: S1 and S2 normal without any S3, S4, or murmurs. ABDOMEN: Normal bowel sounds. ABDOMEN: Obese and nontender. EXTREMITIES: Revealed no clubbing, cyanosis, or edema. NEUROLOGICAL: Grossly intact. LABORATORY DATA: EKGs revealed normal sinus rhythm with left anterior fascicular block. He has occasional PVCs. No significant arrhythmias on the monitor. Hemoglobin 11.8, hematocrit 35.8, white count 4900, platelets 230,000. Sodium 142, potassium 4.9, chloride 109, carbon dioxide 25, BUN 38, creatinine 2.83. Cholesterol 123, triglycerides 114, HDL 30, LDL 70. Cardiac enzymes are normal x3. TSH is normal. Echocardiogram today revealed that study be technically difficult. Ejection fraction was 50% to 55% with moderate left atrial enlargement, mild mitral regurgitation, mild tricuspid regurgitation, and mild pulmonic regurgitation. IMPRESSION: 1. Recurrent falls over the last 3 months, some of these episodes sound as if it may be true syncope with just suddenly being aware that he is on the ground and not remember falling. 2. Mild coronary artery disease. 3. Hypertension. 4. Hyperlipidemia. 5. History of deep venous thrombosis. 6. History of stroke. 7. Status post right nephrectomy for renal cell carcinoma. 8. Chronic kidney disease. RECOMMENDATIONS: The patient will continue to be monitored. We did discuss various ways to further evaluate this from an arrhythmic standpoint. Consideration could be given to a month-long monitoring or an implantable loop recorder. Also, consideration could be given to electrophysiology testing and Electrophysiology will be consulted. Job ID: [id number]
[2018-12-31] MEDS: Sodium Chloride 0.45% 1,000 ML IV SCH (05:31)
[2018-12-31 08:34] LABS: Anion Gap 12 mmol/L (10-20); BUN (Urea Nitrogen) 37 mg/dL (8.4-25.7); Calc. Creatinine Clearance 40 mL/min (70-130); Calcium 8.8 mg/dL (7.8-10.44); Carbon Dioxide 23 mmol/L (23-31); Chloride 109 mmol/L (98-107); Estimated GFR-MDRD 23; Glucose 90 mg/dL (83-110); Potassium 4.6 mmol/L (3.5-5.1); Sodium 139 mmol/L (136-145)
[2018-12-31] MEDS ORDERED: Aspirin 81 mg Enteric Coated Tablet PO SCH (09:00)
[2018-12-31] MEDS ORDERED: NIFEdipine XL 60 MG TAB PO SCH (09:00)
[2018-12-31] MEDS: hydrALAZINE 25 MG TAB PO SCH ×2 (10:08→16:01)
[2018-12-31] MEDS: Famotidine/PF 20 mg/2ml Vial SLOW IVP SCH (10:08)
[2018-12-31 12:11] VITALS: TEMP 97.9
[2018-12-31] MEDS ORDERED: Lidocaine 1% w/Epinephrine 1:100K 20 ML VIAL ONE (12:43)
[2018-12-31 15:33] VITALS: BP 141/63
--- NOTE | 2018-12-31 16:36 | ULT ---
BILATERAL CAROTID DUPLEX ULTRASOUND: HISTORY: Syncope TECHNIQUE: Grayscale, color-flow and spectral Doppler ultrasound imaging of the extracranial carotid artery syst ems was performed bilaterally. FINDINGS: There is plaque formation on both sides. The peak systolic velocity in the right ICA measures 1:15 cm/s with an end-diastolic velocity of 15 c m/s and a systolic ratio of 1.4. The peak systolic velocity in the left ICA measures 85 cm/s with an end-diastolic velocity of 21 cm/s and a systolic ratio of 0.95. Flow in both vertebral arteries remains antegrade. IMPRESSION: No evidence of hemodynamically significant stenosis.
--- NOTE | 2018-12-31 17:00 | OP ---
DATE OF PROCEDURE: 12/31/2018 PROCEDURE PERFORMED: Implantation for loop recorder. REASON FOR PROCEDURE: Mr. Mulligan is an 83-year-old man with history of infrequent, but severe syncopal spells causing his current admission as well. He has also palpitations. Here for a loop recorder implant for further monitoring. DESCRIPTION OF PROCEDURE: The left prepectoral area was prepped, draped, and anesthetized using subcutaneous lidocaine with a standard [employer] LINQ recorder insertion tool kit. Incision was made and the LINQ recorder was in implanted. The wound was closed with Dermabond and the patient tolerated the procedure well. No complications noted. CONCLUSION: Successful LINQ recorder implant. PLAN: Routine monitoring. Job ID: [id number]
--- NOTE | 2018-12-31 17:04 | CON ---
DATE OF CONSULTATION: 12/31/2018 REASON FOR CONSULTATION: Syncope and collapse. HISTORY OF PRESENT ILLNESS: Mr. Mulligan is an 83-year-old male, who was admitted with multiple complaints, but largely because of multiple falls that have occurred recently. He reports that he has had just under 10 falls in the past 3 months, some have been outside while he is walking around, while he attempts to use a walker. He had previously largely used an electric scooter, but this is no longer functional and thus he was using his walker. With some of these instances of passing out, he becomes very lightheaded and then wakes up on the floor. He denies any preceding heart racing or palpitations, chest pain, pressure, or shortness of breath surrounding these episodes. On a general basis, though he has had increasing shortness of breath with some associated bilateral neck pain and also headache pain. He was admitted for further evaluation. He was found to have left anterior fascicular block on EKG in addition to occasional PVCs. He had an echocardiogram performed that shows a preserved ejection fraction of 50% to 55% with mild valvular disease, but also a moderately dilated left atrium. His story is concerning for potential arrhythmia related issue prompting his syncope and collapse. He has been found to have significantly elevated blood pressures and is on multiple medications to control this. His multiple orthostatic blood pressure checks have been negative for any significant orthostasis. Currently, Mr. Mulligan is feeling fairly well. He is somewhat chronically weak and deconditioned and having some persistent shortness of breath, but has not had any recurrent syncopal episode since being admitted. REVIEW OF SYSTEMS: A 12-point review of systems is conducted, is negative except that listed above in HPI. PAST MEDICAL HISTORY: 1. Hypertension. 2. Hyperlipidemia. 3. Mild coronary artery disease (RCA by left heart catheterization in 2016). 4. DVT. 5. TIA in 2016. 6. BPH. 7. Chronic kidney disease. 8. Renal cell carcinoma. 9. Prostate cancer. 10. Anxiety. 11. Depression. 12. Obesity. 13. Physical deconditioning. 14. Right nephrectomy. ALLERGIES: LORATADINE. HOME MEDICATIONS: Include: 1. Aspirin 81 mg daily. 2. Hydralazine 25 mg t.i.d. 3. Imdur 30 mg daily. 4. Metoprolol succinate 25 mg daily. 5. Myrbetriq 25 mg daily. 6. Nifedipine 60 mg daily. 7. Simvastatin 40 mg at bedtime. SOCIAL HISTORY: Denies alcohol, tobacco, or illicit drug use. Lives with his . 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 FAMILY HISTORY: Noncontributory. OBJECTIVE: VITAL SIGNS: Temperature 97.9, pulse 60, blood pressure 168/76, and respirations 14. GENERAL: The patient is alert and oriented. Speech is clear. Affect is appropriate. He is in no apparent distress, resting recumbent in bed during the exam. He is morbidly obese with a BMI of 40.4. NECK: Supple without jugular venous distention. LUNGS: Sounds are distant, but with diminished sounds in the bases, but otherwise clear to auscultation. HEART: Rate is irregularly irregular with crisp S1 and S2. ABDOMEN: Obese, soft, and nontender without palpable masses. Hepatojugular reflux is negative. EXTREMITIES: Warm and dry to touch without clubbing, cyanosis, or edema. NEUROLOGIC: Nonfocal. Gait was not assessed. Orthostatic blood pressures were performed repeatedly and were negative. LABORATORY DATA: Hematology was unremarkable. Chemistry and electrolytes were normal. Creatinine 2.69. Serial troponins were negative. TSH is 2.0. Echocardiogram on 12/30/2018, ejection fraction 50% to 55%. Left atrium is moderately dilated, mild MR, mild TR, mild TN. Telemetry and EKGs were reviewed, they reflect sinus rhythm with left anterior fascicular block. No significant QRS widening and low burden PVCs. IMPRESSION: 1. Syncope and collapse, recurrent over the past 3 months. 2. Hypertension. 3. History of stroke/transient ischemic attack. 4. Mild coronary artery disease. 5. Morbid obesity. 6. Physical deconditioning. 7. Chronic kidney disease. 8. Preserved ejection fraction 50% to 55%. 9. Moderate left atrial enlargement/dilation. PLAN AND RECOMMENDATIONS: Mr. Mulligan is a pleasant 83-year-old gentleman. We discussed possible etiologies behind syncope and collapse including cardiac arrhythmias as a possible cause. Given his history of cryptogenic stroke in addition to recent syncope, the recommendation is to do an implantable loop recorder for long-term monitoring for any potential arrhythmia causes that are contributing to syncopal episodes. With his left atrial enlargement, he may certainly have some undiagnosed atrial fibrillation. We discussed risks, benefits, and alternatives. The patient is in agreement with the loop recorder, and we will proceed later today with implant. Thank you for allowing me to participate in the care of this patient. Job ID: [id number]
--- NOTE | 2018-12-31 17:09 | PDOC.PN ---
- Subjective Encounter Start Date: 12/31/18 Encounter Start Time: 17:07 Mr. Mulligan was seen today in follow-up of neck pain and frequent falls. He feels a bit tired today, but otherwise ok. - Objective Resuscitation Status - Order Detail: 12/30/18 01:53 Resuscitation Status Routine Co-Sign Provider: Resuscitation Status: FULL: Full Resuscitation MAR Reviewed: Yes Vital Signs & Weight: Vital Signs (12 hours) Temp Pulse Pulse Pulse Resp BP BP 12/31/18 16:01 69 141/63 H 12/31/18 15:10 69 20 141/63 H 12/31/18 12:01 97.9 F 60 20 12/31/18 11:23 61 64 129/99 H 12/31/18 10:09 65 167/75 H 12/31/18 10:08 65 167/75 H 12/31/18 08:21 12/31/18 07:20 98.6 F 65 20 BP BP BP BP BP BP Pulse Ox 12/31/18 16:01 12/31/18 15:10 96 12/31/18 12:01 168/76 H 97 12/31/18 11:23 223/89 H 211/87 H 205/64 H 12/31/18 10:09 12/31/18 10:08 12/31/18 08:21 172/78 H 188/81 H 214/96 H 12/31/18 07:20 167/75 H 98 Pulse Ox Pulse Ox 12/31/18 16:01 12/31/18 15:10 12/31/18 12:01 12/31/18 11:23 97 98 12/31/18 10:09 12/31/18 10:08 12/31/18 08:21 12/31/18 07:20 Weight Weight 289 lb 14.4 oz I&O: 12/30/18 12/31/18 01/01/19 06:59 06:59 06:59 Intake Total 340 2094 302 Output Total 300 1000 Balance 40 1094 302 Result Diagrams: 12/30/18 04:25 12/31/18 07:50 Phys Exam - Physical Examination HEENT: PERRLA Respiratory: no wheezing, no rales, no rhonchi, clear to auscultation bilateral Cardiovascular: RRR, no significant murmur, no rub Gastrointestinal: soft, non-tender, no distention, positive bowel sounds Musculoskeletal: no edema, pulses present Dx/Plan (1) Neck pain Code(s): M54.2 - CERVICALGIA Status: Acute (2) Frequent PVCs Code(s): I49.3 - VENTRICULAR PREMATURE DEPOLARIZATION Status: Acute (3) Obesity, morbid, BMI 40.0-49.9 Code(s): E66.01 - MORBID (SEVERE) OBESITY DUE TO EXCESS CALORIES Status: Acute (4) HTN (hypertension) Code(s): I10 - ESSENTIAL (PRIMARY) HYPERTENSION Status: Chronic Qualifiers: Hypertension type: essential hypertension Qualified Code(s): I10 - Essential (primary) hypertension - Plan * Syncope- he has had loop recorder placed. Carotid dopplers were negative * Neck pain- likely due to DJD of the spine. MRI was not able to be done * Records from [facility] in [place] were reviewed. He had a bone scan September of 2018, which was negative for metastatic disease. He also had a CT scan of the abdomen as well which was reviewed. He also had a sleep study was well, and has sleep apnea, and recommended to use a CPAP on autopap at 8-12 cmH2O * He has ambulated with a walker * Stable for discharge home with home Health
--- NOTE | 2019-01-03 16:55 | DIS ---
DATE OF ADMISSION: 12/29/2018 DATE OF DISCHARGE: 12/31/2018 PRIMARY CARE PHYSICIAN: Ray Allen MD DISCHARGE DISPOSITION: Home. PRIMARY DISCHARGE DIAGNOSES: 1. Possible syncope. 2. Frequent falls. 3. 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 4. Hypertension. 5. Morbid obesity. 6. Hyperlipidemia. 7. History of deep venous thrombosis. 8. History of BPH. 9. History of renal cancer. DISCHARGE MEDICATIONS: 1. The patient was placed on hydralazine 10 mg up to 4 times a day as needed for elevated blood pressure and to nifedipine XL 60 mg daily. 2. Imdur extended release 30 mg daily. 3. Hydralazine 25 mg t.i.d. 4. Simvastatin 40 mg at bedtime. 5. Myrbetriq 25 mg daily. 6. Metoprolol succinate extended release 25 mg daily. 7. Aspirin 81 mg a day. CODE STATUS: Full code. ALLERGIES: TO LORATADINE. PROCEDURES DONE DURING THE ADMISSION: The patient had a V/Q scan which was low probability for PE. The patient also had an MRI of the brain, which was negative for any acute intracranial abnormalities. He also had an echocardiogram which showed an ejection fraction which was estimated at 50% to 55%, some moderate left atrial enlargement. The patient also had bilateral carotid Dopplers, which were negative for any flow-limiting disease or significant stenosis. CODE STATUS: Full code. ALLERGIES: LORATADINE. HOSPITAL COURSE: Mr. Mulligan is a very pleasant 83-year-old gentleman who presented to the emergency room after he has had multiple falls and also described with could be a possible syncopal episode. He was brought into observation and ruled out and Cardiology was consulted. He ultimately underwent an echocardiogram which was essentially negative as well as a V/Q scan and had a loop recorder placed to see if he had any malignant arrhythmias. He also had some degree of orthostasis with widely varying blood pressures which did drop significantly when standing. Also he is complaining of some neck pain. This is likely due to degenerative joint disease of the spine. An MRI of the cervical spine was attempted, but the patient could not lay still in order to have it done. Records from [facility] were obtained in [place] where apparently he has had very similar symptoms of severe neck pain and frequent falling and had an evaluation at that time. These results were reviewed. He had a whole-body bone scan done in September 2018 which did not show any metastatic disease. There were some areas of arthritis which . The patient also had a sleep study showing significant sleep apnea. He was recommended to have auto-PAP at 8-12 cm of water and also had a CT scan of the abdomen and pelvis, which did not show any recurrent renal disease. He will be discharged home today and will have close outpatient followup as well as home health as well. Job ID: [id number]
== END 2018-12-31 18:52 | disposition home or self-care (01) ==
LOC: ERS 17:45 → 2SW 20:54
PROVIDERS: ADMIT Emergency Medicine; ATTEND Emergency Medicine
PROC: 0JH632Z Insertion of Monitoring Device into Chest Subcutaneous Tissue and Fascia, Percutaneous Approach (ICD-10-PCS; principal; 2018-12-30)
DX: R55 Syncope and collapse (principal); R00.2 Palpitations; I13.0 Hypertensive heart and chronic kidney disease with heart failure and stage 1 through stage 4 chronic kidney disease, or unspecified chronic kidney disease; N18.9 Chronic kidney disease, unspecified; I50.9 Heart failure, unspecified; F41.9 Anxiety disorder, unspecified; F32.9 Major depressive disorder, single episode, unspecified; E78.5 Hyperlipidemia, unspecified; N40.0 Benign prostatic hyperplasia without lower urinary tract symptoms; Z79.82 Long term (current) use of aspirin; Z79.899 Other long term (current) drug therapy; Z86.73 Personal history of transient ischemic attack (TIA), and cerebral infarction without residual deficits; Z88.8 Allergy status to other drugs, medicaments and biological substances; Z91.81 History of falling
CPT/HCPCS: 33285; 70551; 78582; 80048 ×2; 80061; 80306; 81001; 84443; 84484; 85025; 87086; 93005; 93306; 93880; 96361 ×2; 96374; 96375; 96376 ×2; 97116; 97139 ×4; 97530; 99285; A9540; A9558; C1764; G0378 ×2; 36415; J2001; J2060; S0028

== ENCOUNTER 2019-02-18 10:26 | Emergency (ER) | payer MEDICARE ==
[2019-02-18] MEDS ORDERED: Morphine 2 MG/ML SYRINGE ONE (11:01)
[2019-02-18] MEDS ORDERED: Diazepam 5 MG TAB ONE (11:51)
== END 2019-02-18 12:02 | disposition home or self-care (01) ==
LOC: ERS 10:26
DX: M62.830 Muscle spasm of back (principal); E78.5 Hyperlipidemia, unspecified; I10 Essential (primary) hypertension; Z86.73 Personal history of transient ischemic attack (TIA), and cerebral infarction without residual deficits; N40.0 Benign prostatic hyperplasia without lower urinary tract symptoms; I50.9 Heart failure, unspecified; N18.9 Chronic kidney disease, unspecified; F41.9 Anxiety disorder, unspecified; F32.9 Major depressive disorder, single episode, unspecified; Z79.899 Other long term (current) drug therapy
CPT/HCPCS: 36415; 93005; 96374; J2270

== ENCOUNTER 2019-11-02 09:19 | Outpatient (CLI) | payer MEDICARE, OTHER ==
--- NOTE | 2019-11-02 12:13 | ULT ---
BILATERAL RENAL ULTRASOUND: HISTORY: Hematuria. Right nephrectomy in 2002 for renal cancer. COMPARISON: 03/04/2016. FINDINGS: The patient is status post right nephrectomy. The left kidney measures 12.1 cm without hydronephrosis. There are multiple cysts in the left kidney , the largest measuring 5.5 cm. The urinary bladder is well distended with a volume of 266 cc and is grossly unremarkable. IMPRESSION: 1. Status post right nephrectomy. 2. Left renal cysts. POS: [facility]
== END 2019-11-02 09:20 | disposition home or self-care (01) ==
LOC: BICULT 09:19
PROVIDERS: ATTEND Internal Medicine Nephrology
DX: R31.9 Hematuria, unspecified (principal); N28.1 Cyst of kidney, acquired; Z90.5 Acquired absence of kidney
CPT/HCPCS: 36415; 76770; 80048; 81001; 85025; 85576; 85610; 85730; 87086

== ENCOUNTER 2022-01-01 14:41 | Inpatient (IN) | payer MEDICARE, OTHER ==
[2022-01-01 15:14] LABS: Hemoglobin 9.3 g/dL (14.0-18.0); Mean Corpuscular HGB CONC 31.8 g/dL (32.0-36.0); Mean Platelet Volume 7.2 fL (7.4-10.4); Platelet Count 155 thou/uL (130-400); RBC Distribution Width 13.4 % (11.5-14.5); Red Blood Cell (RBC) Count 3.22 mill/uL (4.70-6.10); White Blood Cell (WBC) Count 4.3 thou/uL (4.8-10.8)
[2022-01-01 15:34] LABS: ALT (SGPT) 10 U/L (8-55); AST (SGOT) 19 U/L (5-34); Albumin 3.6 g/dL (3.4-4.8); Alkaline Phosphatase 51 U/L (40-110); Anion Gap 18 mmol/L (10-20); BUN (Urea Nitrogen) 70 mg/dL (8.4-25.7); Bilirubin, Total 0.4 mg/dL (0.2-1.2); Calc. Creatinine Clearance 0 mL/min (70-130); Calcium 8.7 mg/dL (7.8-10.44); Carbon Dioxide 17 mmol/L (23-31); Chloride 108 mmol/L (98-107); Estimated GFR 8; Globulin 2.7 g/dL (2.4-3.5); Glucose 105 mg/dL (83-110); Lipase 44 U/L (8-78); Potassium 4.6 mmol/L (3.5-5.1); Protein, Total 6.3 g/dL (5.8-8.1); Sodium 138 mmol/L (136-145)
[2022-01-01 15:40] LABS: Band 8 % (5-11); Lymphocytes 28 % (21-51); MDiff Complete? YES; Monocytes 5 % (0-10); Neutrophil 59 % (42-75); Platelet Morphology Comment Appears Adequate; Polychromasia SLIGHT = 2-3 cells (100X) (0-2/hpf)
[2022-01-01 16:30] LABS: CKMB 1.4 ng/mL (0-6.6)
[2022-01-01 16:53] LABS: Bilirubin Negative (Negative); Blood, Urine 3+ (Negative); Clarity Turbid (Clear); Glucose, Urine (Dipstick) 70 mg/dL (Negative); Ketone, Urine Negative (Negative); Leukocyte 500 Leu/uL (Negative); Nitrite Negative (Negative); Protein, Urine (Dipstick) 200 mg/dL (Neg-Trace); Specific Gravity, Urine 1.013 (1.002-1.036); Urobilinogen Normal mg/dL (Less than 2); pH, Urine 6.5 (5.0-9.0)
[2022-01-01 17:06] LABS: Bacteria/HPF 2+ HPF (None Seen); WBC/HPF 21-50 HPF (0-3)
[2022-01-01] MEDS ORDERED: cefTRIAXone\\ROCEPHIN 2 GM VIAL ONE (17:34)
[2022-01-01] MEDS ORDERED: cloNIDine 0.1 MG TAB ONE (17:34)
[2022-01-01 18:17] LABS: SARS-CoV-2 NAA Rapid Test DETECTED (NotDetected)
[2022-01-01] MEDS ORDERED: Ondansetron PF 4 MG/2 ML Vial IVP PRN (18:31)
[2022-01-01] MEDS ORDERED: Senokot S 8.6-50 MG TAB PO PRN (18:31)
[2022-01-01] MEDS ORDERED: Albuterol 200 PUFF (6.7GM INHALER) INH PRN (18:31)
[2022-01-01] MEDS ORDERED: Bisacodyl 5 MG TAB PO PRN (18:31)
[2022-01-01] MEDS ORDERED: Benzonatate 100 MG CAP PO PRN (18:31)
[2022-01-01] MEDS ORDERED: Acetaminophen 650 MG Suppository PR PRN (18:31)
[2022-01-01] MEDS ORDERED: Lactated Ringer's 1,000 ML IV SCH ×2 (18:45)
[2022-01-01 19:21] LABS: Troponin I 0.047 ng/mL (< 0.028)
[2022-01-01] MEDS ORDERED: NIRMATRELVIR 150 MG/RITONAVIR 100 MG TABLET PO SCH (21:00)
[2022-01-01] MEDS ORDERED: HYDROcodone/Acetaminophen 5/325 mg Tablet PO SCH (21:30)
[2022-01-01] MEDS ORDERED: HYDROcodone/Acetaminophen 5/325 mg Tablet ONE (21:36)
[2022-01-01 21:47] LABS: PTT 32.4 sec (22.9-36.1); Prothrombin Time 13.4 sec (12.0-14.7)
[2022-01-01 21:48] LABS: D-Dimer Test 2.1 *mcg/mL (0.27-0.43)
[2022-01-01 22:00] LABS: Troponin I 0.038 ng/mL (< 0.028)
[2022-01-02] MEDS ORDERED: hydrALAZINE 20 MG/ML VIAL SLOW IVP PRN (00:01)
[2022-01-02] MEDS: Heparin 5,000 UNITS/ML VIAL SC SCH ×3 (00:18→20:31)
[2022-01-02 00:30] VITALS: BMI 33.3
[2022-01-02] MEDS: Albuterol 200 PUFF (6.7GM INHALER) INH SCH ×4 (01:09→17:14)
[2022-01-02] MEDS ORDERED: HYDROcodone/Acetaminophen 5/325 mg Tablet PO SCH (04:00)
[2022-01-02 04:47] LABS: #Lymphocytes 1.1 thou/uL (1.20-3.40); #Monocytes 0.5 thou/uL (0.11-0.59); %Basophils 0.3 % (0.0-1.0); %Lymphocytes 29.9 % (21.0-51.0); %Monocytes 14.4 % (0.0-10.0); %Neutrophils 54.4 % (42.0-75.0); Hemoglobin 8.6 g/dL (14.0-18.0); Mean Corpuscular HGB CONC 31.1 g/dL (32.0-36.0); Mean Corpuscular Hemoglobin 28.3 pg (27.0-31.0); Mean Corpuscular Volume 90.8 fL (78.0-98.0); Mean Platelet Volume 7.2 fL (7.4-10.4); Platelet Count 143 thou/uL (130-400); RBC Distribution Width 13.2 % (11.5-14.5); Red Blood Cell (RBC) Count 3.04 mill/uL (4.70-6.10); White Blood Cell (WBC) Count 3.7 thou/uL (4.8-10.8)
[2022-01-02 05:09] LABS: ALT (SGPT) 11 U/L (8-55); AST (SGOT) 18 U/L (5-34); Albumin 3.4 g/dL (3.4-4.8); Alkaline Phosphatase 47 U/L (40-110); Anion Gap 15 mmol/L (10-20); BUN (Urea Nitrogen) 71 mg/dL (8.4-25.7); Bilirubin, Direct 0.2 mg/dL (0.1-0.3); Bilirubin, Total 0.4 mg/dL (0.2-1.2); Calc. Creatinine Clearance 13 mL/min (70-130); Calcium 8.6 mg/dL (7.8-10.44); Carbon Dioxide 21 mmol/L (23-31); Chloride 109 mmol/L (98-107); Estimated GFR 8; Glucose 92 mg/dL (83-110); Potassium 4.4 mmol/L (3.5-5.1); Protein, Total 5.9 g/dL (5.8-8.1); Sodium 141 mmol/L (136-145)
[2022-01-02] MEDS: Ascorbic Acid 500 mg Chewable Tablet PO SCH (09:37)
[2022-01-02] MEDS: Zinc Sulfate 220 MG CAP PO SCH (09:37)
[2022-01-02] MEDS: Cholecalciferol (Vitamin D3) 400 UNITS TAB PO SCH (09:37)
[2022-01-02] MEDS: cefTRIAXone\\ROCEPHIN 1 GM in Sodium Chloride 0.9% 100 ML IVPB SCH (09:37)
[2022-01-02] MEDS: Lactated Ringer's 1,000 ML IV SCH (17:11)
[2022-01-03] MEDS: Albuterol 200 PUFF (6.7GM INHALER) INH SCH ×4 (00:20→18:45)
[2022-01-03] MEDS: Acetaminophen 325 MG TAB PO PRN ×2 (03:56→21:26)
[2022-01-03] MEDS: Lactated Ringer's 1,000 ML IV SCH ×4 (05:11→20:15)
[2022-01-03 06:59] LABS: #Eosinphils 0.2 thou/uL (0.0-0.7); #Lymphocytes 1.2 thou/uL (1.20-3.40); #Monocytes 0.3 thou/uL (0.11-0.59); %Basophils 0.8 % (0.0-1.0); %Eosinophils 6.2 % (0.0-10.0); %Monocytes 8.3 % (0.0-10.0); %Neutrophils 53.6 % (42.0-75.0); Hemoglobin 8.2 g/dL (14.0-18.0); Mean Corpuscular HGB CONC 31.7 g/dL (32.0-36.0); Mean Corpuscular Hemoglobin 28.9 pg (27.0-31.0); Mean Corpuscular Volume 91.1 fL (78.0-98.0); Mean Platelet Volume 7.4 fL (7.4-10.4); Platelet Count 139 thou/uL (130-400); RBC Distribution Width 13.3 % (11.5-14.5); Red Blood Cell (RBC) Count 2.85 mill/uL (4.70-6.10); White Blood Cell (WBC) Count 3.8 thou/uL (4.8-10.8)
[2022-01-03 07:16] LABS: Anion Gap 16 mmol/L (10-20); BUN (Urea Nitrogen) 62 mg/dL (8.4-25.7); Calc. Creatinine Clearance 14 mL/min (70-130); Calcium 7.9 mg/dL (7.8-10.44); Carbon Dioxide 19 mmol/L (23-31); Chloride 110 mmol/L (98-107); Estimated GFR 9; Glucose 91 mg/dL (83-110); Potassium 4.2 mmol/L (3.5-5.1); Sodium 141 mmol/L (136-145)
[2022-01-03] MEDS: Heparin 5,000 UNITS/ML VIAL SC SCH ×2 (09:10→20:14)
[2022-01-03] MEDS: Ascorbic Acid 500 mg Chewable Tablet PO SCH (09:10)
[2022-01-03] MEDS: Zinc Sulfate 220 MG CAP PO SCH (09:10)
[2022-01-03] MEDS: Cholecalciferol (Vitamin D3) 400 UNITS TAB PO SCH (09:10)
[2022-01-03] MEDS: cefTRIAXone\\ROCEPHIN 1 GM in Sodium Chloride 0.9% 100 ML IVPB SCH (09:11)
[2022-01-03] MEDS ORDERED: Epoetin (ESRD) 20,000 UNITS/ML SC SCH (09:45)
[2022-01-03] MEDS ORDERED: Epoetin (ESRD) 10,000 UNITS/ML VIAL SC SCH (12:00)
[2022-01-03] MEDS ORDERED: AMPicillin 2,000 MG in Syringe 0 ML SLOW IVP SCH (15:00)
[2022-01-03] MEDS: Ferrous Sulfate 325 MG TAB PO SCH (16:25)
[2022-01-03] MEDS: Ampicillin 2 GM in Sodium Chloride 0.9% 100 ML IVPB SCH ×2 (16:25→21:23)
[2022-01-04] MEDS: Albuterol 200 PUFF (6.7GM INHALER) INH SCH ×4 (00:18→21:12)
[2022-01-04] MEDS: Ampicillin 2 GM in Sodium Chloride 0.9% 100 ML IVPB SCH ×4 (05:18→21:47)
[2022-01-04] MEDS: Acetaminophen 325 MG TAB PO PRN ×2 (05:19→21:13)
[2022-01-04] MEDS: Lactated Ringer's 1,000 ML IV SCH (05:19)
[2022-01-04] MEDS ORDERED: Sodium Bicarbonate 150 MEQ in Dextrose 5% in Water 1,000 ML IV SCH (08:45)
[2022-01-04] MEDS: Heparin 5,000 UNITS/ML VIAL SC SCH ×2 (10:05→21:12)
[2022-01-04] MEDS: Zinc Sulfate 220 MG CAP PO SCH (10:06)
[2022-01-04] MEDS: Ascorbic Acid 500 mg Chewable Tablet PO SCH (10:07)
[2022-01-04] MEDS: Ferrous Sulfate 325 MG TAB PO SCH ×2 (10:07→15:58)
[2022-01-04] MEDS: Cholecalciferol (Vitamin D3) 400 UNITS TAB PO SCH (10:53)
[2022-01-04] MEDS ORDERED: NIFEdipine XL 30 MG TAB PO SCH (11:00)
[2022-01-04] MEDS: hydrALAZINE 25 MG TAB PO SCH ×2 (15:58→21:13)
[2022-01-05] MEDS: Albuterol 200 PUFF (6.7GM INHALER) INH SCH ×3 (00:38→13:02)
[2022-01-05] MEDS: Ampicillin 2 GM in Sodium Chloride 0.9% 100 ML IVPB SCH ×2 (04:25→09:05)
[2022-01-05 07:28] LABS: #Eosinphils 0.2 thou/uL (0.0-0.7); #Lymphocytes 0.8 thou/uL (1.20-3.40); #Monocytes 0.3 thou/uL (0.11-0.59); #Neutrophils 1.6 thou/uL (1.40-6.50); %Basophils 0.4 % (0.0-1.0); %Eosinophils 6.3 % (0.0-10.0); %Monocytes 9.1 % (0.0-10.0); %Neutrophils 55.3 % (42.0-75.0); Hemoglobin 8.7 g/dL (14.0-18.0); Mean Corpuscular Hemoglobin 29.4 pg (27.0-31.0); Mean Corpuscular Volume 89.1 fL (78.0-98.0); Mean Platelet Volume 7.3 fL (7.4-10.4); Platelet Count 140 thou/uL (130-400); RBC Distribution Width 13.2 % (11.5-14.5); Red Blood Cell (RBC) Count 2.95 mill/uL (4.70-6.10); White Blood Cell (WBC) Count 2.8 thou/uL (4.8-10.8)
[2022-01-05 07:46] LABS: Anion Gap 14 mmol/L (10-20); BUN (Urea Nitrogen) 51 mg/dL (8.4-25.7); Calc. Creatinine Clearance 16 mL/min (70-130); Calcium 8.5 mg/dL (7.8-10.44); Carbon Dioxide 25 mmol/L (23-31); Chloride 110 mmol/L (98-107); Estimated GFR 10; Glucose 106 mg/dL (83-110); Potassium 3.9 mmol/L (3.5-5.1); Sodium 145 mmol/L (136-145)
[2022-01-05] MEDS ORDERED: NIFEdipine XL 60 MG TAB PO SCH ×2 (09:00→21:00)
[2022-01-05] MEDS: Cholecalciferol (Vitamin D3) 400 UNITS TAB PO SCH (09:03)
[2022-01-05] MEDS: hydrALAZINE 25 MG TAB PO SCH (09:06)
[2022-01-05] MEDS: Ferrous Sulfate 325 MG TAB PO SCH (09:06)
[2022-01-05] MEDS: Ascorbic Acid 500 mg Chewable Tablet PO SCH (09:06)
[2022-01-05] MEDS: Zinc Sulfate 220 MG CAP PO SCH (09:07)
[2022-01-05] MEDS: Heparin 5,000 UNITS/ML VIAL SC SCH (09:08)
[2022-01-05] MEDS ORDERED: Sodium Bicarbonate Tab 325 MG TAB PO SCH ×2 (11:45→21:00)
[2022-01-05] MEDS ORDERED: Carvedilol 6.25 MG TAB PO SCH (21:00)
[2022-01-05 21:12] VITALS: BP 167/78; TEMP 98.2
== END 2022-01-05 15:01 | disposition home or self-care (01) | DRG 682 ==
LOC: ERS 14:41 → ERHOLD 17:02 → 2NO 23:55
PROVIDERS: ADMIT Internal Medicine; ATTEND Internal Medicine
PROC: 8E0ZXY6 Isolation (ICD-10-PCS; principal; 2022-01-01)
DX: N17.9 Acute kidney failure, unspecified (principal); U07.1 COVID-19; I13.0 Hypertensive heart and chronic kidney disease with heart failure and stage 1 through stage 4 chronic kidney disease, or unspecified chronic kidney disease; N30.01 Acute cystitis with hematuria; E87.2 Acidosis; I50.32 Chronic diastolic (congestive) heart failure; Z16.23 Resistance to quinolones and fluoroquinolones; Z20.822 Contact with and (suspected) exposure to COVID-19; N40.0 Benign prostatic hyperplasia without lower urinary tract symptoms; F41.9 Anxiety disorder, unspecified; F32.A Depression, unspecified; I48.0 Paroxysmal atrial fibrillation; D63.1 Anemia in chronic kidney disease; E78.5 Hyperlipidemia, unspecified; I25.10 Atherosclerotic heart disease of native coronary artery without angina pectoris; C61 Malignant neoplasm of prostate; B95.2 Enterococcus as the cause of diseases classified elsewhere; N18.5 Chronic kidney disease, stage 5; Z90.49 Acquired absence of other specified parts of digestive tract; Z98.890 Other specified postprocedural states; I25.2 Old myocardial infarction; Z88.8 Allergy status to other drugs, medicaments and biological substances; Z79.899 Other long term (current) drug therapy; Z79.51 Long term (current) use of inhaled steroids; Z95.1 Presence of aortocoronary bypass graft
CPT/HCPCS: 36415; 36416; 71045; 76770; 80048; 80053; 80076; 81003; 81015; 82550; 82553; 82728; 83605; 83615; 83690; 84145; 84484; 85025; 85379; 85610; 85730; 86140; 87077; 87086; 87186; 93005; 94760; J0290; J0696; J1644; J3490; J7070; J7120; Q4081; U0002

== ENCOUNTER 2022-02-03 15:20 | Inpatient (IN) | payer OTHER ==
[2022-02-03 16:10] LABS: #Eosinphils 0.1 thou/uL (0.0-0.7); #Lymphocytes 1.2 thou/uL (1.20-3.40); #Monocytes 0.7 thou/uL (0.11-0.59); #Neutrophils 6.7 thou/uL (1.40-6.50); %Basophils 0.5 % (0.0-1.0); %Eosinophils 1.5 % (0.0-10.0); %Lymphocytes 13.4 % (21.0-51.0); %Monocytes 7.9 % (0.0-10.0); %Neutrophils 76.8 % (42.0-75.0); Hemoglobin 9.2 g/dL (14.0-18.0); Mean Corpuscular HGB CONC 32.7 g/dL (32.0-36.0); Mean Corpuscular Hemoglobin 28.9 pg (27.0-31.0); Mean Corpuscular Volume 88.1 fL (78.0-98.0); Platelet Count 200 thou/uL (130-400); RBC Distribution Width 13.8 % (11.5-14.5); Red Blood Cell (RBC) Count 3.17 mill/uL (4.70-6.10); White Blood Cell (WBC) Count 8.8 thou/uL (4.8-10.8)
[2022-02-03 16:27] LABS: Phosphorus 5.2 mg/dL (2.3-4.7)
[2022-02-03 16:29] LABS: ALT (SGPT) Less than 7 U/L (8-55); AST (SGOT) 9 U/L (5-34); Alkaline Phosphatase 58 U/L (40-110); Anion Gap 14 mmol/L (10-20); BUN (Urea Nitrogen) 50 mg/dL (8.4-25.7); Bilirubin, Total 0.4 mg/dL (0.2-1.2); Calc. Creatinine Clearance 0 mL/min (70-130); Calcium 9.1 mg/dL (7.8-10.44); Carbon Dioxide 21 mmol/L (23-31); Chloride 109 mmol/L (98-107); Estimated GFR 8; Globulin 2.3 g/dL (2.4-3.5); Glucose 107 mg/dL (83-110); Magnesium 2.2 mg/dL (1.6-2.6); Potassium 4.8 mmol/L (3.5-5.1); Protein, Total 6.3 g/dL (5.8-8.1); Sodium 139 mmol/L (136-145)
[2022-02-03] MEDS ORDERED: Lidocaine Viscous Sol 2% 15 ml UD Cup ONE (16:58)
[2022-02-03] MEDS ORDERED: Guaifenesin DM 100-10/5 ML UDCUP PO PRN (18:35)
[2022-02-03] MEDS ORDERED: Senokot S 8.6-50 MG TAB PO PRN (18:35)
[2022-02-03] MEDS ORDERED: Acetaminophen 325 MG TAB PO PRN (18:35)
[2022-02-03] MEDS ORDERED: Ondansetron ODT 4 MG TAB PO PRN (18:35)
[2022-02-03] MEDS ORDERED: Acetaminophen 650 MG Suppository PR PRN (18:35)
[2022-02-03] MEDS ORDERED: Bisacodyl 5 MG TAB PO PRN (18:35)
[2022-02-03] MEDS ORDERED: Ondansetron PF 4 MG/2 ML Vial IVP PRN (18:35)
[2022-02-03] MEDS ORDERED: hydrALAZINE 20 MG/ML VIAL SLOW IVP PRN (20:07)
[2022-02-03 21:30] VITALS: BMI 34.4
[2022-02-03] MEDS: Famotidine 20 MG TAB PO SCH (21:38)
[2022-02-03] MEDS: Famotidine/PF 20 mg/2ml Vial SLOW IVP SCH (21:38)
[2022-02-04 06:13] LABS: #Eosinphils 0.1 thou/uL (0.0-0.7); #Lymphocytes 1.3 thou/uL (1.20-3.40); #Monocytes 0.7 thou/uL (0.11-0.59); #Neutrophils 5.4 thou/uL (1.40-6.50); %Basophils 0.6 % (0.0-1.0); %Eosinophils 0.9 % (0.0-10.0); %Lymphocytes 17.9 % (21.0-51.0); %Monocytes 8.8 % (0.0-10.0); %Neutrophils 71.9 % (42.0-75.0); Hemoglobin 8.6 g/dL (14.0-18.0); Mean Corpuscular HGB CONC 32.4 g/dL (32.0-36.0); Mean Corpuscular Hemoglobin 29.1 pg (27.0-31.0); Mean Corpuscular Volume 89.9 fL (78.0-98.0); Mean Platelet Volume 7.3 fL (7.4-10.4); Platelet Count 172 thou/uL (130-400); RBC Distribution Width 13.4 % (11.5-14.5); Red Blood Cell (RBC) Count 2.96 mill/uL (4.70-6.10); White Blood Cell (WBC) Count 7.5 thou/uL (4.8-10.8)
[2022-02-04 06:25] LABS: INR-International Normal Ratio 1.2; PTT 34.9 sec (22.9-36.1); Prothrombin Time 15.7 sec (12.0-14.7)
[2022-02-04 06:38] LABS: Anion Gap 14 mmol/L (10-20); BUN (Urea Nitrogen) 50 mg/dL (8.4-25.7); Calc. Creatinine Clearance 14 mL/min (70-130); Carbon Dioxide 21 mmol/L (23-31); Chloride 111 mmol/L (98-107); Estimated GFR 8; Glucose 110 mg/dL (83-110); Potassium 4.9 mmol/L (3.5-5.1); Sodium 141 mmol/L (136-145)
[2022-02-04] MEDS ORDERED: ceFAZolin 2 GM/Dextrose 50 ML 2 GM in Premix Bag 1 BAG IVPB SCH (09:45)
[2022-02-04] MEDS ORDERED: Epoetin (ESRD) 20,000 UNITS/ML SC SCH (09:45)
[2022-02-04 10:53] LABS: HBSAB Concentration Less than 8.00 mIU/mL; HBSAg Index 0.27 S/CO (0-0.99); Hep B Core Total Ab Non-Reactive (NonReactive); Hep B Core Total Index 0.08 S/CO (0-0.79); Hep B Surf AB Non-Reactive (NonReactive); Hep B Surf Ag Non-Reactive S/CO (NonReactive); Hep C IgG Ab Non-Reactive (NonReactive); Hep C Index 0.06 S/CO (0-0.79)
[2022-02-04] MEDS ORDERED: Tuberculin PPD 0.1 ML VIAL I-DERMAL SCH (12:00)
[2022-02-04] MEDS ORDERED: Epoetin (ESRD) 10,000 UNITS/ML VIAL SC SCH (12:00)
[2022-02-04] MEDS: Sevelamer Carbonate 800 MG TAB PO SCH ×2 (12:01→16:16)
[2022-02-04] MEDS ORDERED: traMADol HCl 50 MG TAB PO PRN (14:56)
[2022-02-04] MEDS: hydrALAZINE 25 MG TAB PO SCH ×2 (16:16→20:44)
[2022-02-04] MEDS: Famotidine 20 MG TAB PO SCH (20:44)
[2022-02-04] MEDS: Carvedilol 3.125 MG TAB PO SCH (20:44)
[2022-02-04] MEDS: Trospium 20 MG TAB PO SCH (20:44)
[2022-02-04] MEDS: Calcitriol 0.25 MCG CAP PO SCH (20:44)
[2022-02-04] MEDS: Sodium Bicarbonate Tab 325 MG TAB PO SCH (20:44)
[2022-02-04] MEDS: Famotidine/PF 20 mg/2ml Vial SLOW IVP SCH (20:51)
[2022-02-04] MEDS ORDERED: Trospium 20 MG TAB PO SCH (21:00)
[2022-02-05] MEDS: hydrALAZINE 25 MG TAB PO SCH ×3 (08:15→21:56)
[2022-02-05] MEDS: Finasteride 5 MG TAB PO SCH (08:15)
[2022-02-05] MEDS: Calcitriol 0.25 MCG CAP PO SCH ×2 (08:15→20:03)
[2022-02-05] MEDS: Sodium Bicarbonate Tab 325 MG TAB PO SCH ×2 (08:15→20:02)
[2022-02-05] MEDS: Atorvastatin Calcium 20 MG TAB PO SCH (08:15)
[2022-02-05] MEDS: Carvedilol 3.125 MG TAB PO SCH ×2 (08:16→21:55)
[2022-02-05] MEDS: Sevelamer Carbonate 800 MG TAB PO SCH ×3 (08:16→16:48)
[2022-02-05] MEDS: NIFEdipine XL 60 MG TAB PO SCH (08:16)
[2022-02-05] MEDS ORDERED: Heparin 10,000 UNITS/ 10 ML VIAL ONE ×2 (08:31→13:34)
[2022-02-05] MEDS ORDERED: HYDROcodone/Acetaminophen 5/325 mg Tablet PO SCH (09:45)
[2022-02-05] MEDS: Phenazopyridine HCl 100 MG TAB PO SCH ×2 (12:25→17:37)
[2022-02-05] MEDS ORDERED: Heparin 5,000 UNITS/ML VIAL ONE (13:34)
[2022-02-05] MEDS ORDERED: Lidocaine 1% w/Epinephrine 1:200K 30 ML VIAL ONE (13:34)
[2022-02-05] MEDS ORDERED: Bupivacaine PF 0.5% 30 ML VIAL ONE (13:34)
[2022-02-05] MEDS ORDERED: Protamine Sulfate 50 MG/5 ML VIAL ONE (13:34)
[2022-02-05] MEDS ORDERED: Propofol 500 MG/50 ML VIAL ONE (13:56)
[2022-02-05] MEDS ORDERED: fentaNYL Citrate/PF 100 MCG/2 ML SYRINGE ONE (13:56)
[2022-02-05] MEDS ORDERED: CEFAZOLIN 2 GM VIAL ONE (14:08)
[2022-02-05] MEDS ORDERED: Sodium Chloride 0.9% 100 ML ONE (14:09)
[2022-02-05] MEDS ORDERED: ePHEDrine 50 MG/ML VIAL ONE (14:31)
[2022-02-05] MEDS ORDERED: Phenylephrine 10 MG/ML VIAL ONE (14:31)
[2022-02-05] MEDS ORDERED: PROPOFOL 200 MG/20 ML VIAL ONE (14:31)
[2022-02-05] MEDS ORDERED: Lidocaine 1% PF 5 ML VIAL ONE (14:31)
[2022-02-05] MEDS ORDERED: ePHEDrine Sulfate 50 MG/10 ML VIAL ONE (14:57)
[2022-02-05] MEDS: Trospium 20 MG TAB PO SCH (20:02)
[2022-02-05] MEDS: Acetaminophen 325 MG TAB PO PRN (20:03)
[2022-02-05] MEDS: Famotidine 20 MG TAB PO SCH (20:05)
[2022-02-05] MEDS: traMADol HCl 50 MG TAB PO PRN (20:07)
[2022-02-05] MEDS: Famotidine/PF 20 mg/2ml Vial SLOW IVP SCH (21:55)
[2022-02-06 06:42] LABS: #Basophils 0.1 thou/uL (0.0-0.2); #Eosinphils 0.2 thou/uL (0.0-0.7); #Lymphocytes 1.2 thou/uL (1.20-3.40); #Monocytes 0.6 thou/uL (0.11-0.59); #Neutrophils 4.1 thou/uL (1.40-6.50); %Basophils 0.9 % (0.0-1.0); %Eosinophils 2.9 % (0.0-10.0); %Lymphocytes 19.1 % (21.0-51.0); %Monocytes 10.4 % (0.0-10.0); %Neutrophils 66.6 % (42.0-75.0); Hemoglobin 7.4 g/dL (14.0-18.0); Mean Corpuscular Hemoglobin 28.9 pg (27.0-31.0); Mean Corpuscular Volume 90.3 fL (78.0-98.0); Mean Platelet Volume 7.5 fL (7.4-10.4); Platelet Count 149 thou/uL (130-400); RBC Distribution Width 13.5 % (11.5-14.5); Red Blood Cell (RBC) Count 2.56 mill/uL (4.70-6.10); White Blood Cell (WBC) Count 6.1 thou/uL (4.8-10.8)
[2022-02-06 06:56] LABS: Anion Gap 14 mmol/L (10-20); BUN (Urea Nitrogen) 46 mg/dL (8.4-25.7); Calc. Creatinine Clearance 15 mL/min (70-130); Calcium 8.5 mg/dL (7.8-10.44); Carbon Dioxide 22 mmol/L (23-31); Chloride 105 mmol/L (98-107); Estimated GFR 9; Glucose 85 mg/dL (83-110); Potassium 4.8 mmol/L (3.5-5.1); Sodium 136 mmol/L (136-145)
[2022-02-06] MEDS: Atorvastatin Calcium 20 MG TAB PO SCH (08:27)
[2022-02-06] MEDS: Sodium Bicarbonate Tab 325 MG TAB PO SCH ×2 (08:27→20:31)
[2022-02-06] MEDS: Finasteride 5 MG TAB PO SCH (08:27)
[2022-02-06] MEDS: Calcitriol 0.25 MCG CAP PO SCH ×2 (08:27→20:30)
[2022-02-06] MEDS: Phenazopyridine HCl 100 MG TAB PO SCH ×3 (08:27→16:54)
[2022-02-06] MEDS: Sevelamer Carbonate 800 MG TAB PO SCH ×3 (08:27→16:54)
[2022-02-06] MEDS ORDERED: Heparin 10,000 UNITS/ 10 ML VIAL ONE (09:23)
[2022-02-06] MEDS: Carvedilol 3.125 MG TAB PO SCH ×2 (09:42→20:31)
[2022-02-06] MEDS: hydrALAZINE 25 MG TAB PO SCH ×3 (09:43→22:17)
[2022-02-06] MEDS: NIFEdipine XL 60 MG TAB PO SCH (13:16)
[2022-02-06] MEDS: Acetaminophen 325 MG TAB PO PRN (20:31)
[2022-02-06] MEDS: Trospium 20 MG TAB PO SCH (20:31)
[2022-02-06] MEDS: Famotidine 20 MG TAB PO SCH (20:31)
[2022-02-06] MEDS: traMADol HCl 50 MG TAB PO PRN (20:33)
[2022-02-06] MEDS: Famotidine/PF 20 mg/2ml Vial SLOW IVP SCH (20:52)
[2022-02-07] MEDS: Acetaminophen 325 MG TAB PO PRN ×2 (02:06→16:25)
[2022-02-07] MEDS ORDERED: Sodium Chloride 0.65% Nasal 44 ML BOT EA NARE PRN (02:12)
[2022-02-07 06:45] LABS: #Eosinphils 0.2 thou/uL (0.0-0.7); #Lymphocytes 1.2 thou/uL (1.20-3.40); #Monocytes 0.7 thou/uL (0.11-0.59); #Neutrophils 3.2 thou/uL (1.40-6.50); %Basophils 0.6 % (0.0-1.0); %Eosinophils 4.1 % (0.0-10.0); %Lymphocytes 22.9 % (21.0-51.0); %Monocytes 13.3 % (0.0-10.0); %Neutrophils 59.2 % (42.0-75.0); Hemoglobin 7.2 g/dL (14.0-18.0); Mean Corpuscular Hemoglobin 28.9 pg (27.0-31.0); Mean Corpuscular Volume 90.1 fL (78.0-98.0); Mean Platelet Volume 7.8 fL (7.4-10.4); Platelet Count 147 thou/uL (130-400); RBC Distribution Width 13.3 % (11.5-14.5); Red Blood Cell (RBC) Count 2.49 mill/uL (4.70-6.10); White Blood Cell (WBC) Count 5.4 thou/uL (4.8-10.8)
[2022-02-07 07:05] LABS: Anion Gap 13 mmol/L (10-20); BUN (Urea Nitrogen) 32 mg/dL (8.4-25.7); Calc. Creatinine Clearance 17 mL/min (70-130); Calcium 8.4 mg/dL (7.8-10.44); Carbon Dioxide 24 mmol/L (23-31); Chloride 104 mmol/L (98-107); Estimated GFR 11; Glucose 91 mg/dL (83-110); Potassium 4.1 mmol/L (3.5-5.1); Sodium 137 mmol/L (136-145)
[2022-02-07] MEDS: hydrALAZINE 25 MG TAB PO SCH ×2 (09:00→14:25)
[2022-02-07] MEDS: NIFEdipine XL 60 MG TAB PO SCH (09:01)
[2022-02-07] MEDS: Calcitriol 0.25 MCG CAP PO SCH (09:01)
[2022-02-07] MEDS: Finasteride 5 MG TAB PO SCH (09:01)
[2022-02-07] MEDS: Phenazopyridine HCl 100 MG TAB PO SCH ×3 (09:01→17:54)
[2022-02-07] MEDS: Sodium Bicarbonate Tab 325 MG TAB PO SCH (09:01)
[2022-02-07] MEDS: Sevelamer Carbonate 800 MG TAB PO SCH ×3 (09:01→17:54)
[2022-02-07] MEDS: Carvedilol 3.125 MG TAB PO SCH (09:01)
[2022-02-07] MEDS: Atorvastatin Calcium 20 MG TAB PO SCH (09:01)
[2022-02-07] MEDS ORDERED: Heparin 10,000 UNITS/ 10 ML VIAL ONE (09:34)
[2022-02-07 18:26] VITALS: BP 94/40; TEMP 98.4
== END 2022-02-07 19:25 | disposition home or self-care (01) | DRG 264 ==
LOC: ERS 15:20 → INTOOBSV 18:19 → T4-A 18:19 → OBSVTOIN 02-04 11:45
PROVIDERS: ADMIT Internal Medicine; ATTEND Internal Medicine
PROC: 031B0ZF Bypass Right Radial Artery to Lower Arm Vein, Open Approach (ICD-10-PCS; principal; 2022-02-05)
PROC: 02HV33Z Insertion of Infusion Device into Superior Vena Cava, Percutaneous Approach (ICD-10-PCS; 2022-02-05)
PROC: B548ZZA Ultrasonography of Superior Vena Cava, Guidance (ICD-10-PCS; 2022-02-05)
PROC: 5A1D70Z Performance of Urinary Filtration, Intermittent, Less than 6 Hours Per Day (ICD-10-PCS; 2022-02-05)
DX: I13.2 Hypertensive heart and chronic kidney disease with heart failure and with stage 5 chronic kidney disease, or end stage renal disease (principal); N18.6 End stage renal disease; N17.9 Acute kidney failure, unspecified; I50.32 Chronic diastolic (congestive) heart failure; Z20.822 Contact with and (suspected) exposure to COVID-19; Z66 Do not resuscitate; I25.10 Atherosclerotic heart disease of native coronary artery without angina pectoris; C61 Malignant neoplasm of prostate; R33.8 Other retention of urine; Z96.652 Presence of left artificial knee joint; R31.0 Gross hematuria; D63.1 Anemia in chronic kidney disease; E83.39 Other disorders of phosphorus metabolism; I25.2 Old myocardial infarction; Z86.73 Personal history of transient ischemic attack (TIA), and cerebral infarction without residual deficits; Z79.51 Long term (current) use of inhaled steroids; Z95.0 Presence of cardiac pacemaker; Z88.5 Allergy status to narcotic agent
CPT/HCPCS: 36415; 36430; 71045; 76770; 80048; 80053; 83735; 84100; 84132; 84153; 85025; 85610; 85730; 86580; 86704; 86850; 86900; 86901; 87340; 93005; 93970; 94760; 96374; 96375; C1751; C1752; C1776; G0378; J0690; J1644; J2370; J2405; J2704; J2720; J3490; P9016; Q4081; S0020; S0028; U0003; U0005